=== PATIENT | male | born 1945 | race Caucasian/White ===

== ENCOUNTER → 2017-11-06 10:03 | Outpatient (CLI) | payer MEDICARE, OTHER, SELFPAY ==
[2017-11-06 10:39] LABS: Hemoglobin A1C 6.7 % (4.5-6.2)
== END ==
PROVIDERS: PCP General Practice; Visit Provider General Practice
DX: E11.9 Type 2 diabetes mellitus without complications (principal)
CPT/HCPCS: 36415; 83036

== ENCOUNTER 2018-02-08 10:07 | Outpatient (CLI) | payer MEDICARE, OTHER, SELFPAY ==
[2018-02-08 11:47] LABS: Hemoglobin A1C 6.5 % (4.5-6.2)
== END 2018-02-08 10:27 ==
PROVIDERS: PCP General Practice; Visit Provider General Practice
DX: E11.9 Type 2 diabetes mellitus without complications (principal)
CPT/HCPCS: 36415; 83036

== ENCOUNTER 2018-05-31 10:31 | Outpatient (CLI) | payer MEDICARE, OTHER, SELFPAY ==
[2018-05-31 11:55] LABS: Anion Gap 6.6 mmol/L (3-11); BUN 28 mg/dL (7-18); CO2 33.4 mmol/L (21.0-32.0); CREATININE 1.17 mg/dL (0.70-1.30); Chloride 101 mmol/L (98-107); Potassium 4.1 mmol/L (3.5-5.1); Sodium 141 mmol/L (136-145)
[2018-05-31 12:06] LABS: Hemoglobin A1C 6.9 % (4.5-6.2)
[2018-05-31 12:16] LABS: COMMENT (LAB VIEW ONLY) 141.81 mg/dL; Microalb ug/mg Crea 5.9 ug/mg Cr
== END 2018-05-31 10:51 ==
PROVIDERS: PCP General Practice; Visit Provider General Practice
DX: E11.9 Type 2 diabetes mellitus without complications (principal); I10 Essential (primary) hypertension
CPT/HCPCS: 36415; 80051; 84520; 82043; 82565; 82570; 83036

== ENCOUNTER 2018-08-30 09:58 | Outpatient (CLI) | payer MEDICARE, OTHER, SELFPAY ==
[2018-08-30 11:37] LABS: Hemoglobin A1C 7.3 % (4.5-6.2)
== END 2018-08-30 10:18 ==
PROVIDERS: PCP General Practice; Visit Provider General Practice
DX: E11.9 Type 2 diabetes mellitus without complications (principal)
CPT/HCPCS: 36415; 83036

== ENCOUNTER 2019-02-09 11:23 | Outpatient (CLI) | payer MEDICARE, OTHER, SELFPAY ==
[2019-02-09 12:48] LABS: Hemoglobin A1C 7.3 % (4.5-6.2)
== END 2019-02-09 11:43 ==
PROVIDERS: PCP Nurse Practitioner Family; Visit Provider General Practice
DX: E11.9 Type 2 diabetes mellitus without complications (principal)
CPT/HCPCS: 36415; 83036

== ENCOUNTER 2019-04-20 20:31 | Outpatient (REF) | payer MEDICARE, OTHER, SELFPAY ==
[2019-04-20 14:09] LABS: ALT 22 U/L (16-63); AST 12 U/L (15-37); Albumin 3.2 g/dL (3.4-5.0); Alkaline Phosphatase 79 U/L (46-116); Anion Gap 7.5 mmol/L (3-11); BUN 23 mg/dL (7-18); Bilirubin, Total 0.3 mg/dL (0.2-1.0); CO2 29.5 mmol/L (21.0-32.0); CREATININE 0.94 mg/dL (0.70-1.30); Calculated LDL 79 mg/dL (<100); Chloride 104 mmol/L (98-107); Cholesterol 137 mg/dL (<200); Glucose 144 mg/dL (74-106); HDL Cholesterol 41 mg/dL (40-60); Potassium 4.6 mmol/L (3.5-5.1); Sodium 141 mmol/L (136-145); Total Protein 6.6 g/dL (6.4-8.2); Triglyceride 85 mg/dL (<150)
== END 2019-04-20 20:51 ==
LOC: NCHCN 20:31
PROVIDERS: PCP Nurse Practitioner Family; Visit Provider Internal Medicine Infectious Disease
DX: E11.9 Type 2 diabetes mellitus without complications (principal); K21.9 Gastro-esophageal reflux disease without esophagitis; I10 Essential (primary) hypertension; G47.30 Sleep apnea, unspecified; Z68.42 Body mass index [BMI] 45.0-49.9, adult
CPT/HCPCS: 80053; 80061

== ENCOUNTER 2019-12-27 12:26 | Outpatient (REF) | payer MEDICARE, OTHER, SELFPAY ==
[2019-12-27 18:50] LABS: Hemoglobin A1C 6.9 % (<5.7)
== END 2019-12-27 12:46 ==
LOC: NCHCN 12:26
PROVIDERS: PCP Nurse Practitioner Family; Visit Provider Nurse Practitioner Family
DX: E11.9 Type 2 diabetes mellitus without complications (principal)
CPT/HCPCS: 83036

== ENCOUNTER 2020-10-23 11:53 | Outpatient (REF) | payer MEDICARE, OTHER, SELFPAY ==
[2020-10-23 14:33] LABS: Anion Gap 3.9 mmol/L (3-11); BUN 20 mg/dL (7-18); CO2 32.1 mmol/L (21.0-32.0); Calcium 9.8 mg/dL (8.5-10.1); Chloride 107 mmol/L (98-107); Glucose 105 mg/dL (74-106); Potassium 4.8 mmol/L (3.5-5.1); Sodium 143 mmol/L (136-145)
== END 2020-10-23 11:54 | disposition home or self-care (01) ==
LOC: NCHCN 11:53
PROVIDERS: PCP Nurse Practitioner Family; Visit Provider Nurse Practitioner Family
DX: E11.9 Type 2 diabetes mellitus without complications (principal)
CPT/HCPCS: 80048

== ENCOUNTER 2021-05-07 19:47 | Emergency (ER) | payer MEDICARE, OTHER, SELFPAY ==
[2021-05-07 19:52] VITALS: BP 138/69; PULSE 86; RESP 18; TEMP 36.5; O2SAT 96
--- NOTE | 2021-05-07 20:15 | DI.CT_ITS ---
Exam(s) CT ABDOMEN PELVIS W EXAM: CT ABDOMEN PELVIS W CLINICAL HISTORY: RLQ pain TECHNIQUE: Imaging Protocol: Axial computed tomography images with coronal and sagittal reformatted images were created and reviewed CONTRAST MATERIAL: Intravenous: Omnipaque 350 Contrast volume:100 mL Oral: No COMPARISON: CT RENAL COLIC WO CONTRAST from 09/30/2008 FINDINGS: ABDOMEN: Lung Bases: There is a small hiatal hernia. Scarring or atelectasis in the lung bases. Liver: Diffuse decreased attenuation of the liver consistent with fatty infiltration. The liver raghavendra ures 21 cm long. No measurable mass. Portal, Superior Mesenteric, and Splenic Veins: Unremarkable. Gallbladder and Biliary Tract: At least 3 soft tissue densities are seen within the gallbladder. The re is a mild amount of pericholecystic fluid. No biliary ductal dilatation. Pancreas: Normal density, no abnormal calcifications or inflammatory process. Spleen: Normal. Adrenals: Mild nodularity is again seen of the adrenal glands. Kidneys: Normal size, contour and axis. Bilateral nephrolithiasis. No ureterolithiasis or hydronephr osis. No masses seen. There is a tiny hypodensity in the inferior pole of the left kidney. It is to o small for the further characterization but likely reflects a small cyst. Abdominal Aorta: Abdominal portion non-dilated. Atherosclerosis. Bowel: No obstruction or bowel wall thickening. There are postsurgical changes at the gastroesophage al junction. Appendix is unremarkable. There is diverticulosis of the colon. Adjacent to the sigmoi d colon there is infiltration of the adjacent fat suspicious for omental infarct or epiploic appendag itis. Peritoneal Cavity: No ascites, collection or mesenteric inflammatory response. No free air. Lymph Nodes: Within normal limits. Bones: Within normal limits for the patient's age. Soft Tissues: Unremarkable. PELVIS: Bladder: Symmetric distention, no gross wall thickening. Reproductive Organs: Unremarkable as visualized. Lymph Nodes: Within normal limits. Bones: Within normal limits for the patient's age. IMPRESSION: 1. Findings most suggestive of epiploic appendagitis or omental infarct adjacent to the cecum. 2. Normal appendix. 3. Colonic diverticulosis without evidence of acute diverticulitis. 4. Gallstones and or sludge. 5. Nephrolithiasis. No hydronephrosis. 6. Hepatic steatosis and hepatomegaly. RADIATION DOSE DELIVERED: 1,365.11mGy.cm Total DLP DATA REPOSITORY: All CT scans at this facility are submitted to the National Radiology Data Registry (NRDR) Dose Index Registry (DIR) with the [employer] ([employer]). RADIATION OPTIMIZATION: All CT scans at this facility use at least one of these dose optimization te chniques: automated exposure control; mA and/or kV adjustment per patient size (includes targeted exa ms where dose is matched to clinical indication); or iterative reconstruction.
--- NOTE | 2021-05-07 20:17 | ED.GENADUL_ITS ---
Discharge Plan Disposition Patient Disposition: HOME Condition: Stable Discharge Details Clinical Impression: Epiploic appendagitis Primary Care Provider: Ashli Lizama ED Provider: Fawad Rodríguez Meds and New Rx's Prescriptions: Continued calcium citrate 1,200 mg DAILY 0RF cyanocobalamin (vitamin B-12) [Vitamin B-12] 1,000 MCG tablet 1,000 mcg PO DAILY 0RF aspirin [Aspir-81] 81 MG tablet,delayed release (DR/EC) 81 mg PO DAILY 0RF potassium chloride [Klor-Con M20] 20 MEQ tablet,ER particles/crystals 20 meq PO DAILY 0RF furosemide [Lasix] 80 MG tablet 80 mg PO DAILY 0RF pantoprazole 40 MG tablet,delayed release (DR/EC) 40 mg PO DAILY 0RF magnesium 250 MG tablet 500 mg PO DAILY 0RF Vitamins and Minerals 1 EACH tablet 1 ea PO DAILY 0RF cholecalciferol (vitamin D3) 1,000 UNITS tablet 2,000 units PO DAILY 0RF Levemir FlexTouch U-100 Insuln 100 unit/mL (3 mL) insulin pen 1 unit SUBCUT PC & HS 0RF Label Comments: inject 25 units subcutaneously at bedtime metformin 500 mg tablet 500 mg BID 0RF lisinopril 5 mg tablet 5 mg DAILY 0RF glyburide 5 mg tablet 5 mg DAILY 0RF Label Comments: Take 1 tablet by mouth twice a day Discharge Instructions Instructions: Acute Abdominal Pain (ED) Additional Instructions: You were seen in the ED for right lower quadrant abdominal pain. Your laboratory studies are unremarkable. Your CT scan shows a normal appendix. You do have epiploic appendagitis which is related to a piece of fat which is twisted and necrosis. It will resolve on its own and is considered self- limiting and typically does not require any type of intervention. You may take Tylenol 1 g every 6-8 hours. Follow-up with primary care next week if not improving. Return to ED for increasing abdominal pain, vomiting, fever, other concerns. Referrals: Ashli Lizama [Primary Care Provider] - Medical Decision Making Obese elderly gentleman presenting with 2 days of right lower quadrant abdominal pain. He is fairly tender in the right lower quadrant but does not have guarding or rebound. His vital signs are normal and he looks well. Still must consider appendicitis or other intestinal process. Does not appear to be related to , hernia. IV established and laboratory studies sent including urinalysis. CT scan of the abdomen pelvis with IV contrast ordered. Vital signs remained stable and normal in the ED. Laboratory studies unremarkable with normal white count and minimal anemia. Chemistries and kidney function are okay. Liver function and lipase normal. Unable to provide urine sample. CT scan shows a normal appendix. He does have findings consistent with epiploic appendagitis which explains his pain and is self-limited typically requiring no intervention. I have discussed this with the patient. Because of his gastric bypass will avoid nonsteroidals. Recommend acetaminophen 1 g every 6-8 hours. Patient declined any pain medication here. Follow-up with primary care next week if continued problems. Return to ED for worsening pain, vomiting, fever, other concerns. Imaging Data Radiologic Study: Imaging: CT Scan (abd/pelvis w contrast) Radiologist's impression: IMPRESSION: 1. Epiploic appendagitis adjacent to the cecum. 2. Normal appendix. 3. Gallbladder stones and/or sludge, without specific inflammatory change. 4. Bilateral nonobstructive kidney stones. 5. Moderate-severe multilevel degenerative disc disease and facet arthropathy. Thank you for allowing us to participate in the care of your patient. Dictated and Authenticated by: Clayton Alberts MD Lab Data Lab results reviewed: Yes I reviewed the patient's lab results. Lab results narrative: No significant abnormalities. HPI General Mode of arrival: ambulatory . Date/Time Provider Initiated Documentation: 05/07/21 20:16 . Limitations to Documentation: no limitations . Information obtained by: patient, RN notes reviewed and old records reviewed . HPI Narrative: Patient presents to ED with right lower quadrant abdominal pain that started 2 days ago. It seems to come and go but never completely resolved. It has not become worse but it has not gone away. It is worse if he is lying flat. It is worse if he presses on the area. There is no radiation to the groin or testicle. There is no back pain. There is no difficulty urinating. He has had no vomiting or diarrhea. He had a normal bowel movement this morning. He denies fever. He has had gastric bypass surgery in the past. Still has his appendix. Related Data Home Medications Medication Instructions Recorded Confirmed aspirin 81 mg tablet,delayed 81 mg PO DAILY 06/09/12 05/07/21 release (Aspir-) cholecalciferol (vitamin D3) 25 2,000 units PO DAILY 06/09/12 05/07/21 mcg (1,000 unit) tablet cyanocobalamin (vitamin B-12) 1,000 mcg PO DAILY 06/09/12 05/07/21 1,000 mcg tablet (Vitamin B-12) furosemide 80 mg tablet (Lasix) 80 mg PO DAILY 06/09/12 05/07/21 magnesium 250 mg tablet 500 mg PO DAILY 06/09/12 05/07/21 multivitamin,tx-minerals (Vitamins 1 ea PO DAILY 06/09/12 05/07/21 and Minerals) pantoprazole 40 mg tablet,delayed 40 mg PO DAILY 06/09/12 05/07/21 release potassium chloride 20 mEq 20 meq PO DAILY 06/09/12 05/07/21 tablet,extended release(part/cryst) (Klor-Con M) glyburide 5 mg tablet 5 mg DAILY 05/07/21 05/07/21 insulin detemir U-100 100 unit/mL 1 unit SUBCUT PC & HS 05/07/21 05/07/21 (3 mL) subcutaneous pen (Levemir FlexTouch U-100 Insulin) lisinopril 5 mg tablet 5 mg DAILY 05/07/21 05/07/21 metformin 500 mg tablet 500 mg BID 05/07/21 05/07/21 Allergies Allergy/AdvReac Type Severity Reaction Status Date / Time tolnaftate Allergy Intermediate bower his Verified 05/07/21 19:56 skin off cephalexin [Cephalexin] Allergy Mild Skin Rash Verified 05/07/21 19:56 Penicillins Allergy Mild unknown Verified 05/07/21 19:56 sulfamethoxazole Allergy Unknown Hives Verified 05/07/21 19:56 [From Bactrim] trimethoprim [From Bactrim] Allergy Unknown Hives Verified 05/07/21 19:56 adhesive Allergy rash Verified 05/07/21 19:56 bacitracin Allergy rash Verified 05/07/21 19:56 latex Allergy rash Verified 05/07/21 19:56 neomycin [Neomycin] Allergy Verified 05/07/21 19:56 General Stated Complaint: Abd Prob ZEUS: 3 Review of Systems Narrative: 01/03 Review of Systems completed and is negative except as stated above in HPI (Systems reviewed: Const, Eyes, ENT, Resp, CV, GI, , MSK, Skin, Neuro) PFSH All Active Problems (Updated 05/07/21 @ 22:41 by Fawad Rodríguez MD) Epiploic appendagitis (Acute) Sensorineural hearing loss of combined sites, bilateral (Acute 11/16/14) Medical History Diabetes mellitus GERD (gastroesophageal reflux disease) HTN (hypertension) Kidney stones Surgical History S/P gastric bypass Social History Smoking/Tobacco Use Status: Former Tobacco Use Smoking risk assessment performed?: Yes Drug use: Never Substance use type: does not use Do you feel safe at home: Yes Do you feel safe in your relationship?: Yes Exam Narrative Exam Narrative: Const: Obese elderly male in NAD. HEENT: NC/AT. Normal facial exam. Eyes: Normal conjunctiva and sclera. Neck: Supple. Trachea midline. Lungs: Normal respiratory effort. Lungs are clear. Cor: RRR without murmur/gallop. Good radial pulses. GI: Soft and ND. Tender in the RLQ without guarding/rebound. No Rosving. : Normal external genitalia without hernia Back: No CVAT Neuro: A+O x 3. Normal speech, mentation, gait. Cranial nerves II - XII grossly intact. No gross motor or sensory deficit. Ext: No C/C. Normal ROM. Skin: Warm and dry without rash. Course Vital Signs Vital signs: Vital Signs Temperature 97.7 F 05/07/21 19:52 Pulse 86 05/07/21 19:52 Respiratory Rate 18 05/07/21 19:52 Blood Pressure 138/69 05/07/21 19:52 Pulse Oximetry 96 05/07/21 19:52 Temperature 97.7 F 05/07/21 19:52 Temperature Source Skin 05/07/21 19:52 Pulse 86 05/07/21 19:52 Respiratory Rate 18 05/07/21 19:52 Respiratory Effort 05/07/21 20:03 Blood Pressure 138/69 05/07/21 19:52 Blood Pressure Position Sitting 05/07/21 19:52 Pulse Oximetry 96 05/07/21 19:52 Oxygen Delivery Method Room Air 05/07/21 19:52 Oxygen Flow Rate 0 05/07/21 19:52 Pain Level 6 05/07/21 20:00
[2021-05-07] MEDS: Lactated Ringers 1,000 ML 125 ML IV (20:39)
[2021-05-07 20:51] LABS: Abs Immature Grans 0.02 10^3/uL (0.0-0.06); Absolute Basophil Count 0.08 10^3/uL (0.0-0.2); Absolute Eosinophil Count 0.31 10^3/uL (0.0-0.7); Absolute Lymphocyte Count 1.75 10^3/uL (1.2-3.4); Absolute Monocyte Count 0.82 10^3/uL (0.1-0.8); Absolute Neutrophil Count 4.18 10^3/uL (1.2-6.7); Basophils % 1.1; Eosinophils % 4.3; HCT 39.6 % (40.0-50.0); Immature Grans % 0.3; Lymphocytes % 24.4; MCH 30.5 pg (27.0-33.0); MCHC 32.8 % (32.0-36.0); MPV 9.6 fL (8.0-11.0); Monocytes % 11.5; Neutrophils % 58.4; Nucleated RBC 0 %; Platelet Count 317 10^3/uL (130-400); RBC 4.26 10^6/uL (4.36-5.78); RDW 14.6 % (11.8-14.1); RDW-SD 49.8 fL; WBC 7.16 10^3/uL (4.4-10.8)
[2021-05-07 21:06] LABS: ALT 30 U/L (16-63); AST 14 U/L (15-37); Albumin 3.1 g/dL (3.4-5.0); Alkaline Phosphatase 86 U/L (46-116); Anion Gap 7.5 mmol/L (3-11); BUN 25 mg/dL (7-18); Bilirubin, Total 0.3 mg/dL (0.2-1.0); CO2 28.5 mmol/L (21.0-32.0); Chloride 105 mmol/L (98-107); Glucose 114 mg/dL (74-106); Lipase 99 U/L (73-393); Potassium 4.2 mmol/L (3.5-5.1); Sodium 141 mmol/L (136-145)
[2021-05-07] MEDS: Omnipaque 350 MG/ML 100 ML BTL IJ (21:50)
[2021-05-07] MEDS: Normal Saline Flush 10 ML SYR IVP (21:51)
--- NOTE | 2021-05-07 22:30 | DI.VRAD_ITS ---
PROCEDURE INFORMATION: Exam: CT Abdomen And Pelvis With Contrast Exam date and time: 05/07/2021 8:31 PM Age: 75 years old Clinical indication: Abdominal pain; Localized; Right lower quadrant (rlq); Prior surgery; Surgery date: 6+ months; Surgery type: Gastric bypass 2001; Patient HX: Rlq pain TECHNIQUE: Imaging protocol: Computed tomography of the abdomen and pelvis with contrast. Radiation optimization: All CT scans at this facility use at least one of these dose optimization techniques: automated exposure control; mA and/or kV adjustment per patient size (includes targeted exams where dose is matched to clinical indication); or iterative reconstruction. Contrast material: OMNIPAQUE 350; Contrast volume: 99 ml; Contrast route: INTRAVENOUS (IV); COMPARISON: No relevant prior studies available. FINDINGS: Lungs: Mild pleuroparenchymal scar noted in both lung bases. Diaphragm: Mild hiatal hernia. Liver: Unremarkable liver. No focal lesions. Gallbladder and bile ducts: Large stones and/or sludge noted near the gallbladder fundus. No significant inflammatory changes. No ductal dilatation. Pancreas: Normal. No ductal dilation. Spleen: Normal. No splenomegaly. Adrenal glands: Normal. No mass. Kidneys and ureters: Negative for renal mass or hydronephrosis. Nonobstructing stones are noted in both collecting systems, 3 mm diameter. Ureters are not dilated. There are no stones in the ureters. Stomach and bowel: Postoperative changes from gastric bypass noted. Stomach is collapsed. Small bowel is not dilated. Moderate fat stranding is noted adjacent to the cecum, with a central fat density region, best shown on axial image 54 series 5. Mild stool noted throughout colon. Diverticula are scattered in the descending and sigmoid colon. Rectum is collapsed. Appendix: Normal appendix. Intraperitoneal space: Negative for free fluid or free air. Negative for abscess. Vasculature: Negative for aneurysm. Mild vascular calcifications noted. Lymph nodes: Unremarkable. No enlarged lymph nodes. Urinary bladder: Unremarkable urinary bladder. Giordano are thin. No stones. Reproductive: Large prostate. Bones/joints: Negative for compression fracture. Moderate-severe multilevel degenerative disc disease and facet arthropathy noted. Mild lumbar levoscoliosis present. Sacroiliac joints are normal. No significant narrowing observed in the hips. Soft tissues: Complex postoperative changes noted on the abdominal wall. No specific hernia or fluid collection. IMPRESSION: 1. Epiploic appendagitis adjacent to the cecum. 2. Normal appendix. 3. Gallbladder stones and/or sludge, without specific inflammatory change. 4. Bilateral nonobstructive kidney stones. 5. Moderate-severe multilevel degenerative disc disease and facet arthropathy. Dictated and Authenticated by: Clayton Alberts MD. Ordering:HORACIO Celestin MD
[2021-05-07 22:34] VITALS: BP 126/60; PULSE 90; RESP 18; O2SAT 95
== END 2021-05-07 22:48 | disposition home or self-care (01) ==
PROVIDERS: Emergency Provider Emergency Medicine; PCP Nurse Practitioner Family
DX: K63.89 Other specified diseases of intestine (principal)
CPT/HCPCS: 36415; 80053; 83690; 99285; 74177; 81003; 85025; 99283; J3490

== ENCOUNTER 2022-03-11 16:45 | Outpatient (REF) | payer MEDICARE, OTHER, SELFPAY ==
[2022-03-11 17:52] LABS: Anion Gap 4.2 mmol/L (3-11); BUN 21 mg/dL (7-18); CO2 31.8 mmol/L (21.0-32.0); CREATININE 0.9 mg/dL (0.70-1.30); Calcium 9.5 mg/dL (8.5-10.1); Calculated LDL 84 mg/dL (<100); Chloride 106 mmol/L (98-107); Cholesterol 135 mg/dL (<200); Estimated GFR 88.51 (mL/min/1.73m2); Glucose 113 mg/dL (74-106); HDL Cholesterol 39 mg/dL (40-60); Potassium 4.5 mmol/L (3.5-5.1); Sodium 142 mmol/L (136-145); Triglyceride 62 mg/dL (<150)
== END 2022-03-11 16:46 | disposition home or self-care (01) ==
LOC: NCHCN 16:45
PROVIDERS: PCP Nurse Practitioner Family; Visit Provider Nurse Practitioner Family
DX: E11.9 Type 2 diabetes mellitus without complications (principal); I10 Essential (primary) hypertension
CPT/HCPCS: 80048; 80061

== ENCOUNTER 2022-03-17 10:06 | Emergency (ER) | payer MEDICARE, OTHER, SELFPAY ==
[2022-03-17 10:12] VITALS: BP 114/85; PULSE 70; RESP 16; TEMP 36.4; O2SAT 95
--- NOTE | 2022-03-17 10:43 | ED.GENADUL_ITS ---
Discharge Plan Disposition Patient Disposition: Home Discharge Details Clinical Impression: Rash, Hypomagnesemia Primary Care Provider: Ashli Lizama ED Provider: Carissa Mackey Home Meds and New Rx's Prescriptions: New prednisone 20 mg tablet 40 mg PO DAILY Qty: 8 0RF Continued dulaglutide [Trulicity] 0.75 mg subcut QWEEK ipratropium bromide 42 mcg (0.06 %) spray,non-aerosol 2 spray intranasal QHS PRN (Reason: allergy symptoms) Qty: 15 4RF Rx Instructions: administer into each nostril for congestion calcium citrate 1,200 mg DAILY 0RF cyanocobalamin (vitamin B-12) [Vitamin B-12] 1,000 MCG tablet 1,000 mcg PO DAILY aspirin [Aspir-81] 81 MG tablet,delayed release (DR/EC) 81 mg PO DAILY potassium chloride [Klor-Con M20] 20 MEQ tablet,ER particles/crystals 20 meq PO DAILY furosemide [Lasix] 80 MG tablet 80 mg PO DAILY pantoprazole 40 MG tablet,delayed release (DR/EC) 40 mg PO DAILY magnesium 250 MG tablet 500 mg PO DAILY Vitamins and Minerals 1 EACH tablet 1 ea PO DAILY cholecalciferol (vitamin D3) 1,000 UNITS tablet 2,000 units PO DAILY Levemir FlexTouch U-100 Insuln 100 unit/mL (3 mL) insulin pen 25 unit SUBCUT PC & HS Label Comments: inject 25 units subcutaneously at bedtime metformin 500 mg tablet 500 mg BID lisinopril 5 mg tablet 5 mg DAILY No Action triamcinolone acetonide 0.1 % cream 1 applic TOPICAL BID Label Comments: APPLY A SMALL AMOUNT TO AFFECTED AREA TWO TIMES A DAY FOR 2 WEEKS CONTINUOUS Discharge Instructions Instructions: Prednisone (By mouth), Acute Rash (ED), Hypomagnesemia (ED) Additional Instructions: Please return immediately to the emergency department if you develop any new or worsening symptoms, if your condition does not improve as expected, or if you become otherwise concerned. It is extremely important that you call soon as possible to make an appointment to be seen in follow-up for this visit by your primary care doctor. Referrals: Ashli Lizama [Primary Care Provider] - Discharge Data Discharge Date/Time-TO BE ENTERED AT DEPARTURE: 03/17/22 12:08 Medical Decision Making Concern for vaccine related rash, other allergic reaction, viral exanthem, other. Exam/history at this time is not consistent with cellulitis, sepsis, meningitis, Avila-Shaheen syndrome, [place], DRESS syndrome, other acute emergent life-threatening process. Given comorbidities plan for screening labs. Labs reviewed, magnesium 1.7, will replete. Plan for prednisone burst for rash. I had a lengthy discussion with patient that steroids are likely to increase his blood sugar and that he will need close follow-up with his PCP this week. He may also need a longer course of steroid to fully resolve rash. We discussed that he will need further evaluation to determine etiology of skin symptoms. I had a discussion with Patient regarding return to emergency department precautions, home care, and importance of outpatient follow-up. Pt verbalizes understanding of the plan and is amenable. Patient discharged to home with clear plan for outpatient follow-up. All questions were answered. Disposition decision was made weighing the risks and benefits of hospitalization versus outpatient treatment, the risk for further decompensation, and the patient's wishes. Medical Records Medical records reviewed: Yes I reviewed the patient's medical records. Lab Data Lab results reviewed: Yes I reviewed the patient's lab results. Labs: Laboratory Tests Range/Units 03/17/22 03/17/22 03/17/22 10:50 10:50 11:11 WBC (4.4-10.8) 10^3/uL 6.27 RBC (4.36-5.78) 10^6/uL 4.52 Hgb (13.5-17.5) g/dL 13.9 Hct (40.0-50.0) % 41.9 MCV (80-95) fL 93 MCH (27.0-33.0) pg 30.8 MCHC (32.0-36.0) % 33.2 RDW (11.8-14.1) % 13.9 Plt Count (130-400) 10^3/uL 392 MPV (8.0-11.0) fL 9.3 Immature Gran % 0.2 Neutrophils % 67.8 Lymphocytes % 17.7 Monocytes % 9.7 Eosinophils % 3.2 Basophils % 1.4 Nucleated RBC % (0.0-0.3) % 0.0 Absolute Neutrophils (1.2-6.7) 10^3/uL 4.25 Absolute Lymphocytes (1.2-3.4) 10^3/uL 1.11 L Absolute Monocytes (0.1-0.8) 10^3/uL 0.61 Absolute Eosinophils (0.0-0.7) 10^3/uL 0.20 Absolute Basophils (0.0-0.2) 10^3/uL 0.09 Sodium (136-145) mmol/L 140 Potassium (3.5-5.1) mmol/L 3.6 Chloride (98-107) mmol/L 101 Carbon Dioxide (21.0-32.0) mmol/L 30.5 Anion Gap (3-11) mmol/L 8.5 BUN (7-18) mg/dL 25 H Creatinine (0.70-1.30) mg/dL 1.3 Est GFR (CKD-EPI 2020) (mL/min/1.73m2) 56.93 Glucose (74-106) mg/dL 155 H Calcium (8.5-10.1) mg/dL 9.4 Magnesium (1.8-2.4) mg/dL 1.7 L Total Bilirubin (0.2-1.0) mg/dL 0.5 AST (15-37) U/L 13 L ALT (16-63) U/L 16 Alkaline Phosphatase (46-116) U/L 90 C-Reactive Protein (0.0-0.3) mg/dL 4.04 H Total Protein (6.4-8.2) g/dL 7.1 Albumin (3.4-5.0) g/dL 3.2 L Urine Color (Yellow) Yellow Urine Clarity (Clear) Clear Urine pH (5-8) 5.5 Ur Specific Mascot (1.005-1.025) 1.015 Urine Protein (Negative) mg/dL Negative Urine Ketones (Negative) mg/dL Negative Urine Blood (Negative) Negative Urine Nitrite (Negative) Negative Urine Bilirubin (Negative) Negative Urine Urobilinogen (Up TO 0.2) EU/dL 0.2 Ur Leukocyte Esterase (Negative) Negative Urine Glucose (Negative) mg/dL Negative HPI General Mode of arrival: ambulatory . Date/Time Provider Initiated Documentation: 03/17/22 10:31 . Limitations to Documentation: no limitations . Information obtained by: patient, RN notes reviewed and old records reviewed . HPI Narrative: Mickey Elena is a 76-year-old man with a history of insulin-dependent diabetes, hypertension, obstructive sleep apnea, GERD presenting to the emergency department with rash. Patient reports that on 03/11/2022 he received Pfizer omicron booster vaccine. Patient reports that all of his previous COVID vaccines have been Moderna. Patient reports that he has had no vaccine reactions in the past. Patient reports that the day after receiving the vaccine, 03/12, he developed an itchy rash over his scalp, trunk, arms, and upper thighs. Patient reports that he took a few doses of Benadryl which did not improve his symptoms. He states that symptoms have been unchanged since onset, without worsening or improvement. He denies any involvement of his mouth or lips, denies involvement of the genitals, denies involvement of the palms or soles. He denies any recent illness or other symptoms and states that other than rash he feels well and in his usual state of health. He denies pain, fever, cough, shortness of breath, vomiting, diarrhea, numbness, weakness, swelling. He states that he has had a normal appetite. He denies any recent medication changes other than starting Trulicity 3 months ago. Denies any other known new exposures. Related Data Home Medications Medication Instructions Recorded Confirmed aspirin 81 mg tablet,delayed 81 mg PO DAILY 06/09/12 04/07/22 release (Aspir-) cholecalciferol (vitamin D3) 25 2,000 units PO DAILY 06/09/12 04/07/22 mcg (1,000 unit) tablet cyanocobalamin (vitamin B-12) 1,000 mcg PO DAILY 06/09/12 04/07/22 1,000 mcg tablet (Vitamin B-12) furosemide 80 mg tablet (Lasix) 80 mg PO DAILY 06/09/12 04/07/22 magnesium 250 mg tablet 500 mg PO DAILY 06/09/12 04/07/22 multivitamin,tx-minerals (Vitamins 1 ea PO DAILY 06/09/12 04/07/22 and Minerals tablet) pantoprazole 40 mg tablet,delayed 40 mg PO DAILY 06/09/12 04/07/22 release potassium chloride 20 mEq 20 meq PO DAILY 06/09/12 04/07/22 tablet,extended release(part/cryst) (Klor-Con M) insulin detemir U-100 100 unit/mL 25 unit subcut PC & HS 05/07/21 04/07/22 (3 mL) subcutaneous pen (Levemir FlexTouch U-100 Insulin) lisinopril 5 mg tablet 5 mg DAILY 05/07/21 04/07/22 metformin 500 mg tablet 500 mg BID 05/07/21 04/07/22 dulaglutide [Trulicity] 0.75 mg subcut QWEEK 12/05/21 04/07/22 ipratropium bromide 42 mcg (0.06 2 spray intranasal QHS PRN allergy 12/05/21 04/07/22 %) nasal spray symptoms #15 mL prednisone 20 mg tablet 40 mg PO DAILY #8 tabs 03/17/22 04/07/22 triamcinolone acetonide 0.1 % 1 applic topical BID 04/07/22 04/07/22 topical cream Previous Rx's Medication Instructions Recorded ipratropium bromide 42 mcg (0.06 2 spray intranasal QHS PRN allergy 12/05/21 %) nasal spray symptoms #15 mL prednisone 20 mg tablet 40 mg PO DAILY #8 tabs 03/17/22 Allergies Allergy/AdvReac Type Severity Reaction Status Date / Time tolnaftate Allergy Intermediate bower his Verified 04/07/22 16:28 skin off cephalexin [Cephalexin] Allergy Mild Skin Rash Verified 04/07/22 16:28 Penicillins Allergy Mild unknown Verified 04/07/22 16:28 sulfamethoxazole Allergy Unknown Hives Verified 04/07/22 16:28 [From Bactrim] trimethoprim [From Bactrim] Allergy Unknown Hives Verified 04/07/22 16:28 adhesive Allergy rash Verified 04/07/22 16:28 bacitracin Allergy rash Verified 04/07/22 16:28 latex Allergy rash Verified 04/07/22 16:28 neomycin [Neomycin] Allergy Verified 04/07/22 16:28 penicillin V Allergy Verified 04/07/22 16:28 General Stated Complaint: RashLesion ZEUS: 4 Review of Systems Narrative: Constitutional: denies fevers Eyes: denies eye pain, eye redness, eye discharge ENT: denies ear pain, dental pain, sore throat, mouth sores Cardiovascular: denies chest pain, edema Respiratory: denies SOB, cough GI: denies abdominal pain, vomiting, diarrhea : denies flank pain, dysuria MSK: denies back pain, neck pain, arthralgias, myalgias Skin: reports rash as per HPI Neuro: denies headaches, numbness, weakness PFSH All Active Problems Corns and callosities (Acute) Nail dystrophy (Acute) Nasal obstruction (Acute) Nasal vestibulitis (Acute) Conductive hearing loss, external ear (Acute) Impacted cerumen, bilateral (Acute) Sensorineural hearing loss of combined sites, bilateral (Acute 11/16/14) Medical History Diabetes mellitus Excessive cerumen in ear canal GERD (gastroesophageal reflux disease) Hearing loss HTN (hypertension) Kidney stones ROCÍO (obstructive sleep apnea) Surgical History S/P gastric bypass Family History Mother Hypertension Social History Smoking/Tobacco Use Status: Former Tobacco Use Smoking risk assessment performed?: Yes Alcohol Intake: never Drug use: Never Substance use type: does not use current occupation: retired Do you feel safe at home: Yes Do you feel safe in your relationship?: Yes Exam Narrative Exam Narrative: Constitutional: well and [id number], pleasant, conversing normally HENT: head atraumatic/normocephalic/normal inspection, mucous membranes moist, normal inspecition of the oral mucosa Eyes: conjunctiva normal, sclera normal, pupils 3mm b/l, no discharge Neck: no stridor, normal ROM, trachea midline Chest: normal inspection Resp: normal work of breathing, LCTAB Cardio: normal rate, normal rhythm, no murmur appreciated GI: abdomen soft, non-tender, non-distended Back: normal inspection, no rash Skin: warm, dry, normal color, diffuse fine macular papular rash involving the trunk, arms, legs, rash spares the palms and soles, no lip/mucous membrane involvement Neuro: alert, not altered, grossly non-focal, normal tone Ext: no edema Psych: normal mood, normal affect, normal behavior Course Vital Signs Vital signs: Vital Signs Temperature 36.4 C L 03/17/22 10:12 Pulse 70 03/17/22 10:12 Respiratory Rate 16 03/17/22 10:12 Blood Pressure 114/85 03/17/22 10:12 Pulse Oximetry 95 03/17/22 10:12 Temperature 36.4 C L 03/17/22 10:12 Temperature Source Temporal Artery Scan 03/17/22 10:12 Pulse 70 03/17/22 10:12 Respiratory Rate 16 03/17/22 10:12 Respiratory Effort Non-Labored 03/17/22 10:16 Blood Pressure 114/85 03/17/22 10:12 Blood Pressure Position Sitting 03/17/22 10:12 Pulse Oximetry 95 03/17/22 10:12 Oxygen Delivery Method Room Air 03/17/22 10:12 Oxygen Flow Rate 0 03/17/22 10:12 Pain Level 0 03/17/22 10:12
[2022-03-17 11:00] LABS: Abs Immature Grans 0.01 10^3/uL (0.0-0.06); Absolute Basophil Count 0.09 10^3/uL (0.0-0.2); Absolute Lymphocyte Count 1.11 10^3/uL (1.2-3.4); Absolute Monocyte Count 0.61 10^3/uL (0.1-0.8); Absolute Neutrophil Count 4.25 10^3/uL (1.2-6.7); Basophils % 1.4; Eosinophils % 3.2; HCT 41.9 % (40.0-50.0); HGB 13.9 g/dL (13.5-17.5); Immature Grans % 0.2; Lymphocytes % 17.7; MCH 30.8 pg (27.0-33.0); MCHC 33.2 % (32.0-36.0); MCV 93 fL (80-95); MPV 9.3 fL (8.0-11.0); Monocytes % 9.7; Neutrophils % 67.8; Platelet Count 392 10^3/uL (130-400); RBC 4.52 10^6/uL (4.36-5.78); RDW 13.9 % (11.8-14.1); RDW-SD 47.4 fL; WBC 6.27 10^3/uL (4.4-10.8)
[2022-03-17 11:21] LABS: Bilirubin Negative (Negative); Blood Negative (Negative); Clarity Clear (Clear); Glucose Negative (Negative); Ketones Negative (Negative); Leukocyte Esterase Negative (Negative); Nitrite Negative (Negative); Specific Gravity 1.015 (1.005-1.025); Urobilinogen 0.2 EU/dL (Up TO 0.2); pH 5.5 (5-8)
[2022-03-17 11:24] LABS: ALT 16 U/L (16-63); AST 13 U/L (15-37); Albumin 3.2 g/dL (3.4-5.0); Alkaline Phosphatase 90 U/L (46-116); Anion Gap 8.5 mmol/L (3-11); BUN 25 mg/dL (7-18); Bilirubin, Total 0.5 mg/dL (0.2-1.0); C-Reactive Protein 4.04 mg/dL (0.0-0.3); CO2 30.5 mmol/L (21.0-32.0); CREATININE 1.3 mg/dL (0.70-1.30); Calcium 9.4 mg/dL (8.5-10.1); Chloride 101 mmol/L (98-107); Estimated GFR 56.93 (mL/min/1.73m2); Glucose 155 mg/dL (74-106); Magnesium 1.7 mg/dL (1.8-2.4); Potassium 3.6 mmol/L (3.5-5.1); Sodium 140 mmol/L (136-145); Total Protein 7.1 g/dL (6.4-8.2)
[2022-03-17] MEDS: predniSONE 20 MG TAB 40 MG PO (11:48)
[2022-03-17] MEDS: Magnesium Oxide 400 MG TAB PO (11:48)
== END 2022-03-17 12:08 | disposition home or self-care (01) ==
PROVIDERS: Emergency Provider Student in an Organized Health Care Education/Training Program; PCP Nurse Practitioner Family
DX: E83.42 Hypomagnesemia (principal); R21 Rash and other nonspecific skin eruption; E10.9 Type 1 diabetes mellitus without complications; I10 Essential (primary) hypertension
CPT/HCPCS: 36415; 80053; 99283; 81003; 83735; 85025; 86140; 99284; J7512

== ENCOUNTER 2022-04-07 16:20 | Emergency (ER) | payer MEDICARE, SELFPAY ==
[2022-04-07 16:24] VITALS: BP 145/79; PULSE 95; RESP 18; TEMP 36.6; O2SAT 96
--- NOTE | 2022-04-07 16:58 | ED.GENADUL_ITS ---
Discharge Plan Disposition Patient Disposition: Home Condition: Stable Discharge Details Chief Complaint: RashLesion Clinical Impression: Rash Primary Care Provider: Ashli Lizama ED Provider: Berny Whalen Home Meds and New Rx's Prescriptions: No Action dulaglutide [Trulicity] 0.75 mg subcut QWEEK ipratropium bromide 42 mcg (0.06 %) spray,non-aerosol 2 spray intranasal QHS PRN (Reason: allergy symptoms) Qty: 15 4RF Rx Instructions: administer into each nostril for congestion calcium citrate 1,200 mg DAILY 0RF cyanocobalamin (vitamin B-12) [Vitamin B-12] 1,000 MCG tablet 1,000 mcg PO DAILY aspirin [Aspir-81] 81 MG tablet,delayed release (DR/EC) 81 mg PO DAILY potassium chloride [Klor-Con M20] 20 MEQ tablet,ER particles/crystals 20 meq PO DAILY furosemide [Lasix] 80 MG tablet 80 mg PO DAILY pantoprazole 40 MG tablet,delayed release (DR/EC) 40 mg PO DAILY magnesium 250 MG tablet 500 mg PO DAILY Vitamins and Minerals 1 EACH tablet 1 ea PO DAILY cholecalciferol (vitamin D3) 1,000 UNITS tablet 2,000 units PO DAILY Levemir FlexTouch U-100 Insuln 100 unit/mL (3 mL) insulin pen 25 unit SUBCUT PC & HS Label Comments: inject 25 units subcutaneously at bedtime metformin 500 mg tablet 500 mg BID lisinopril 5 mg tablet 5 mg DAILY prednisone 20 mg tablet 40 mg PO DAILY Qty: 8 0RF triamcinolone acetonide 0.1 % cream 1 applic TOPICAL BID Label Comments: APPLY A SMALL AMOUNT TO AFFECTED AREA TWO TIMES A DAY FOR 2 WEEKS CONTINUOUS Discharge Instructions Instructions: Acute Rash (ED) Additional Instructions: Please follow-up immediately with [facility] dermatology. If you have any worsening signs or symptoms please return to the emergency department. Medical Decision Making 76-year-old male presents with rash for over 1 month. Patient noticed a rash March 05 1 day after receiving his Pfizer COVID booster. Rash involves arms back and chest, no involvement of mouth eyes or other mucosal surface. Patient has macular papular rash confluence with plaques and keratinized skin on his back, papular rash with diffuse excoriations on his arms and hands. No bulla petechia or mucosal involvement. Patient is hemodynamically stable. Afebrile nontoxic. Has failed multiple courses of steroids. Is waiting for a call back from [facility] dermatology this week. Counseled patient family extensively at bedside regarding likely futility of adding another course of steroids and my concern that long-term steroids will affect his normal adrenal function as well as cause immunosuppression and derangement of his diabetes. Patient family understanding. Will await call for dermatology appointment at [facility]. Given strict return precautions for worsening signs and symptoms. Upon initial assessment is also concern for diffuse scabies however patient is adamant that he is the only member of his 5 person family in the house that has a rash. HPI General Date/Time Provider Initiated Documentation: 04/07/22 16:23 . HPI Narrative: 76-year-old male presents with a rash for over 1 month, first noticed rash on March 05 1 day after receiving his Pfizer COVID booster. Itching rash red involving arms chest back, no involvement of face mouth or eyes. Patient has been on multiple courses of steroids as well as topical steroids. He is in cont act with a dermatology group at [facility] will be calling this week to schedule an appointment. Persistent symptoms unchanged. Denies new detergents new clothing new environmental exposure. No one in the family has a similar rash. Related Data Home Medications Medication Instructions Recorded Confirmed aspirin 81 mg tablet,delayed 81 mg PO DAILY 06/09/12 04/07/22 release (Aspir-) cholecalciferol (vitamin D3) 25 2,000 units PO DAILY 06/09/12 04/07/22 mcg (1,000 unit) tablet cyanocobalamin (vitamin B-12) 1,000 mcg PO DAILY 06/09/12 04/07/22 1,000 mcg tablet (Vitamin B-12) furosemide 80 mg tablet (Lasix) 80 mg PO DAILY 06/09/12 04/07/22 magnesium 250 mg tablet 500 mg PO DAILY 06/09/12 04/07/22 multivitamin,tx-minerals (Vitamins 1 ea PO DAILY 06/09/12 04/07/22 and Minerals tablet) pantoprazole 40 mg tablet,delayed 40 mg PO DAILY 06/09/12 04/07/22 release potassium chloride 20 mEq 20 meq PO DAILY 06/09/12 04/07/22 tablet,extended release(part/cryst) (Klor-Con M) insulin detemir U-100 100 unit/mL 25 unit subcut PC & HS 05/07/21 04/07/22 (3 mL) subcutaneous pen (Levemir FlexTouch U-100 Insulin) lisinopril 5 mg tablet 5 mg DAILY 05/07/21 04/07/22 metformin 500 mg tablet 500 mg BID 05/07/21 04/07/22 dulaglutide [Trulicity] 0.75 mg subcut QWEEK 12/05/21 04/07/22 ipratropium bromide 42 mcg (0.06 2 spray intranasal QHS PRN allergy 12/05/21 04/07/22 %) nasal spray symptoms #15 mL prednisone 20 mg tablet 40 mg PO DAILY #8 tabs 03/17/22 04/07/22 triamcinolone acetonide 0.1 % 1 applic topical BID 04/07/22 04/07/22 topical cream Previous Rx's Medication Instructions Recorded ipratropium bromide 42 mcg (0.06 2 spray intranasal QHS PRN allergy 12/05/21 %) nasal spray symptoms #15 mL prednisone 20 mg tablet 40 mg PO DAILY #8 tabs 03/17/22 Allergies Allergy/AdvReac Type Severity Reaction Status Date / Time tolnaftate Allergy Intermediate bower his Verified 04/07/22 16:28 skin off cephalexin [Cephalexin] Allergy Mild Skin Rash Verified 04/07/22 16:28 Penicillins Allergy Mild unknown Verified 04/07/22 16:28 sulfamethoxazole Allergy Unknown Hives Verified 04/07/22 16:28 [From Bactrim] trimethoprim [From Bactrim] Allergy Unknown Hives Verified 04/07/22 16:28 adhesive Allergy rash Verified 04/07/22 16:28 bacitracin Allergy rash Verified 04/07/22 16:28 latex Allergy rash Verified 04/07/22 16:28 neomycin [Neomycin] Allergy Verified 04/07/22 16:28 penicillin V Allergy Verified 04/07/22 16:28 General Stated Complaint: RashLesion ZEUS: 4 Review of Systems Narrative: Review of Systems Constitutional: negative Eyes: negative ENT: negative Cardiovascular: negative Respiratory: negative Gastrointestinal: negative : negative Musculoskeletal: negative Skin: Rash Neurologic: negative Psych: negative PFSH All Active Problems (Updated 04/07/22 @ 17:07 by Berny Whalen MD) Rash (Acute) Hypomagnesemia (Acute) Corns and callosities (Acute) Nail dystrophy (Acute) Nasal obstruction (Acute) Nasal vestibulitis (Acute) Conductive hearing loss, external ear (Acute) Impacted cerumen, bilateral (Acute) Sensorineural hearing loss of combined sites, bilateral (Acute 11/16/14) Medical History Diabetes mellitus Excessive cerumen in ear canal GERD (gastroesophageal reflux disease) Hearing loss HTN (hypertension) Kidney stones ROCÍO (obstructive sleep apnea) Surgical History S/P gastric bypass Family History Mother Hypertension Social History Smoking/Tobacco Use Status: Former Tobacco Use Smoking risk assessment performed?: Yes Alcohol Intake: never Drug use: Never Substance use type: does not use current occupation: retired Do you feel safe at home: Yes Do you feel safe in your relationship?: Yes Exam Narrative Exam Narrative: Physical Examination General: alert, awake, cooperative, resting comfortably, no acute distress HEENT: normocephalic, atraumatic; PERRL, EOM intact, conjunctiva normal; no nasal discharge; moist mucous membranes, oral and pharyngeal mucosa normal, tolerating secretions Neck: supple, trachea midline; full ROM Chest: normal to inspection Respiratory: normal respiratory effort, speaking in full sentences, clear to auscultation, no wheezing, rales or rhonchi Skin: Diffuse papular rash involving arms and chest, confluent maculopapular rash with keratinized plaques coalescing on back areas of thickened skin, diffuse excoriations; no mucosal involvement Neuro: AAOx3, normal speech, moving all extremities Psych: Appropriate mood and affect Course Vital Signs Vital signs: Vital Signs Temperature 36.6 C 04/07/22 16:24 Pulse 95 H 04/07/22 16:24 Respiratory Rate 18 04/07/22 16:24 Blood Pressure 145/79 H 04/07/22 16:24 Pulse Oximetry 96 04/07/22 16:24 Temperature 36.6 C 04/07/22 16:24 Temperature Source Skin 04/07/22 16:24 Pulse 95 H 04/07/22 16:24 Respiratory Rate 18 04/07/22 16:24 Respiratory Effort Non-Labored 04/07/22 16:28 Blood Pressure 145/79 H 04/07/22 16:24 Blood Pressure Position Sitting 04/07/22 16:24 Pulse Oximetry 96 04/07/22 16:24 Oxygen Delivery Method Room Air 04/07/22 16:24 Oxygen Flow Rate 0 04/07/22 16:24
--- NOTE | 2022-04-08 09:34 | NUR.NOTE ---
Nursing Note: PAtient was looking for a referral to [facility]. INfomation given to kyleigh Isaac
--- NOTE | 2022-04-08 09:53 | PDOC.ERCMACT ---
- If Service Date Differs Date of service: 04/08/22 Time of Service: 09:53 Care Management Activity Note Souleymane is seen in the ED for an acute rash. At the request of ED provider, LASHAWN coordinates an urgent referral to [facility] dermatology to assist Souleymane in obtaining an appointment for further evaluation and treatment of the rash. He has Probity for insurance.
== END 2022-04-07 17:09 | disposition home or self-care (01) ==
PROVIDERS: Emergency Provider Emergency Medicine; PCP Nurse Practitioner Family
DX: R21 Rash and other nonspecific skin eruption (principal)
CPT/HCPCS: 99281; 99283

== ENCOUNTER 2022-06-17 15:47 | Outpatient (REF) | payer MEDICARE, SELFPAY ==
[2022-06-17 11:00] LABS: COMMENT (LAB VIEW ONLY) 153.27 mg/dL; Microalb ug/mg Crea 2.7 ug/mg Cr
== END 2022-06-17 15:48 | disposition home or self-care (01) ==
LOC: NCHCN 15:47
PROVIDERS: PCP Nurse Practitioner Family; Visit Provider Family Medicine
DX: E11.9 Type 2 diabetes mellitus without complications (principal)
CPT/HCPCS: 82043; 82570

== ENCOUNTER → 2023-02-17 09:15 | Outpatient (BNVA) | payer MEDICARE, SELFPAY | PROVIDERS: PCP Nurse Practitioner Family; Referring Provider Nurse Practitioner Family; Visit Provider Podiatrist | DX: E11.9 Type 2 diabetes mellitus without complications (principal); L60.3 Nail dystrophy; L84 Corns and callosities; B35.1 Tinea unguium; I87.2 Venous insufficiency (chronic) (peripheral); R60.0 Localized edema | CPT/HCPCS: 11721 ==

== ENCOUNTER 2023-05-04 12:30 | Outpatient (REF) | payer MEDICARE, SELFPAY ==
[2023-05-04 19:36] LABS: HCT 40.1 % (40.0-50.0); HGB 13.1 g/dL (13.5-17.5); MCHC 32.7 % (32.0-36.0); MCV 92 fL (80-95); MPV 10.5 fL (8.0-11.0); Platelet Count 322 10^3/uL (130-400); RBC 4.36 10^6/uL (4.36-5.78); RDW 14.7 % (11.8-14.1); RDW-SD 50.3 fL; WBC 6.95 10^3/uL (4.4-10.8)
[2023-05-04 19:58] LABS: Hemoglobin A1C 6.4 % (<5.7)
[2023-05-04 20:19] LABS: ALT 20 U/L (16-63); AST 12 U/L (15-37); Albumin 3.2 g/dL (3.4-5.0); Alkaline Phosphatase 79 U/L (46-116); Anion Gap 9.8 mmol/L (3-11); BUN 22 mg/dL (7-18); Bilirubin, Total 0.3 mg/dL (0.2-1.0); CO2 29.2 mmol/L (21.0-32.0); CREATININE 1.3 mg/dL (0.70-1.30); Calcium 9.7 mg/dL (8.5-10.1); Chloride 102 mmol/L (98-107); Estimated GFR 56.58 (mL/min/1.73m2); Glucose 104 mg/dL (74-106); Potassium 4.1 mmol/L (3.5-5.1); Sodium 141 mmol/L (136-145); Total Protein 6.6 g/dL (6.4-8.2); Vitamin B12 928 pg/mL (193-986)
[2023-05-04 20:57] LABS: Vitamin D 25 Total 43.4 ng/mL (30-100)
== END 2023-05-04 12:31 | disposition home or self-care (01) ==
LOC: NCHCN 12:30
PROVIDERS: PCP Nurse Practitioner Family; Visit Provider Nurse Practitioner Family
DX: E11.9 Type 2 diabetes mellitus without complications (principal)
CPT/HCPCS: 80053; 82306; 85027; 82607; 83036; 83735

== ENCOUNTER → 2023-06-09 09:23 | Outpatient (BNVA) | payer MEDICARE, SELFPAY | PROVIDERS: PCP Nurse Practitioner Family; Referring Provider Nurse Practitioner Family; Visit Provider Podiatrist | DX: E11.9 Type 2 diabetes mellitus without complications (principal); L60.3 Nail dystrophy; L84 Corns and callosities; B35.1 Tinea unguium; I87.2 Venous insufficiency (chronic) (peripheral); R60.0 Localized edema | CPT/HCPCS: 11721 ==

== ENCOUNTER 2023-08-12 01:09 | Inpatient (IN) | payer MEDICARE, SELFPAY ==
[2023-08-12] VITALS (24 sets, daily range): BP systolic 77–164; BP diastolic 48–89; PULSE 77–126; RESP 14–93; TEMP 36.3–39.1; O2SAT 92–98
--- NOTE | 2023-08-12 01:00 | RT.EKG_ITS ---
APPROVED REPORT Exam: Resting ECG Reason for Exam: SOB Patient Location: E HR:83 bpm ECG Measurements Heart Rate 83 AXIS NJ 247 P 68 QRSd 156 QRS -4 QT 426 T -4 QTc 501 Conclusion Sinus rhythm...normal P axis, V-rate 60- 99 Ventricular premature complex...V complex w/ short R-R interval Prolonged NJ interval...NJ >220, V-rate 50- 90 IVCD, consider RBBB...QRSd>120mS, terminal axis(90,270) no ST segment or T wave abnormalitites to suggest occlusive ME
--- NOTE | 2023-08-12 01:15 | DI.CT_ITS ---
Exam(s) CT THORAX CTA EXAM: CT THORAX CTA CLINICAL HISTORY: epigastric pain radiating into back. TECHNIQUE: Imaging Protocol: CT angiography of the chest was performed using pulmonary embolus chuy col. Multi planar reconstructions were performed. CONTRAST MATERIAL: Intravenous: Omnipaque 350 Contrast volume: 100 cc COMPARISON: No exams were available for comparison FINDINGS: CHEST: THORACIC AORTA: No aneurysm. No dissection. PULMONARY ARTERIES: There are no intraluminal filling defects to suggest acute pulmonary emboli.No ev idence of pulmonary infarction LUNGS: No confluent infiltrates nor pleural effusions nor ominous pulmonary nodules. Mild atelectasi s in the lingular segment of the left lung. MEDIASTINUM: There is no hilar nor mediastinal adenopathy. Visualized thyroid unremarkable.Moderate s ize hiatal hernia. Measures 4 cm wide. CARDIAC: Heart size is upper normal. There is no pericardial effusion.Caliber of the thoracic aorta is within normal limits. No dissection there is no significant shift of the interventricular septum. PARTIALLY VISUALIZED UPPERMOST ABDOMEN: Cholelithiasis and distended gallbladder noted. Also evidenc e of probable acute cholecystitis in the partially included gallbladder. Slight thickening of both a drenal glands is noted, unchanged from previous CT scan of 2021. OSSEOUS: No significant osseous lesions.No acute fractures evident.. IMPRESSION: 1. No evidence of acute pulmonary emboli. No evidence of pulmonary infarction.Also no evidence of ao rtic dissection nor aneurysm of the thoracic aorta. No pericardial effusion. 2. Cholelithiasis and probable acute cholecystitis. Recommend follow-up gallbladder ultrasound. 3. Moderate size hiatal hernia. RADIATION DOSE DELIVERED: 605.83mGy.cm Total DLP DATA REPOSITORY: All CT scans at this facility are submitted to the National Radiology Data Registry (NRDR) Dose Index Registry (DIR) with the [employer] ([employer]). RADIATION OPTIMIZATION: All CT scans at this facility use at least one of these dose optimization te chniques: automated exposure control; mA and/or kV adjustment per patient size (includes targeted exa ms where dose is matched to clinical indication); or iterative reconstruction.
[2023-08-12 01:22] LABS: Abs Immature Grans 0.02 10^3/uL (0.0-0.06); Absolute Basophil Count 0.05 10^3/uL (0.0-0.2); Absolute Eosinophil Count 0.33 10^3/uL (0.0-0.7); Absolute Lymphocyte Count 1.19 10^3/uL (1.2-3.4); Absolute Monocyte Count 0.58 10^3/uL (0.1-0.8); Basophils % 0.7 %; Eosinophils % 4.9 %; HCT 36.6 % (40.0-50.0); Immature Grans % 0.3 %; Lymphocytes % 17.8 %; MCH 30.2 pg (27.0-33.0); MCHC 32.8 % (32.0-36.0); MCV 92 fL (80-95); MPV 9.1 fL (8.0-11.0); Monocytes % 8.7 %; Neutrophils % 67.6 %; Platelet Count 342 10^3/uL (130-400); RBC 3.97 10^6/uL (4.36-5.78); RDW 14.1 % (11.8-14.1); RDW-SD 47.7 fL; WBC 6.67 10^3/uL (4.4-10.8)
[2023-08-12] MEDS: Omnipaque 350 MG/ML 100 ML BTL IJ (01:29)
[2023-08-12] MEDS: Normal Saline - Diluent 50 ML VIAL IJ (01:30)
[2023-08-12] MEDS: Normal Saline Flush 10 ML SYR IVP (01:30)
[2023-08-12 01:35] LABS: PTT Activated 27.3 sec (23.6-32.8); Prothrombin Time 10.5 sec (9.1-11.1)
[2023-08-12 01:36] LABS: ALT 124 U/L (16-63); AST 215 U/L (15-37); Alkaline Phosphatase 318 U/L (46-116); Anion Gap 6.1 mmol/L (3-11); BUN 35 mg/dL (7-18); CO2 29.9 mmol/L (21.0-32.0); CREATININE 1.3 mg/dL (0.70-1.30); Calcium 9.2 mg/dL (8.5-10.1); Chloride 102 mmol/L (98-107); Estimated GFR 56.23 (mL/min/1.73m2); Glucose 127 mg/dL (74-106); Lipase 45 U/L (16-77); Magnesium 1.8 mg/dL (1.8-2.4); Sodium 138 mmol/L (136-145); Total Protein 6.7 g/dL (6.4-8.2); Troponin I < 50 ng/L (< or =60)
[2023-08-12] MEDS: Acetaminophen 500 MG TAB 1000 MG PO (02:01)
--- NOTE | 2023-08-12 02:06 | ED.GENADUL_ITS ---
Discharge Plan Disposition Patient Disposition: Admit to [facility] Condition: Serious Discharge Details Chief Complaint: Epigastric Pain/Over45 Clinical Impression: Acute cholecystitis Primary Care Provider: PAYAL LICEA ED Provider: Court Travis Home Meds and New Rx's Prescriptions: No Action ipratropium bromide 42 mcg (0.06 %) spray,non-aerosol 2 spray intranasal QHS PRN (Reason: allergy symptoms) Qty: 15 4RF Rx Instructions: administer into each nostril for congestion mupirocin 2 % ointment 1 applic topical BID Qty: 22 0RF Patient Comments: PRN Rx Instructions: use in nose as directed if needed calcium citrate 250 mg calcium tablet 500 mg PO BID desoximetasone 0.25 % ointment 1 applic topical BID fluoride (sodium) 1.1 % paste 1 applic dental DAILY calcium citrate 1,200 mg DAILY 0RF ketoconazole 2 % cream 1 applic topical BID Patient Comments: PRN Trulicity 1.5 mg/0.5 mL pen injector 1.5 mg subcut QWEEK potassium chloride [Klor-Con M20] 20 mEq tablet,ER particles/crystals 20 meq PO DAILY betamethasone dipropionate 0.05 % ointment 1 applic topical BID cyanocobalamin (vitamin B-12) [Vitamin B-12] 1,000 MCG tablet 1,000 mcg PO DAILY aspirin [Aspir-81] 81 MG tablet,delayed release (DR/EC) 81 mg PO DAILY furosemide [Lasix] 80 MG tablet 80 mg PO DAILY pantoprazole 40 MG tablet,delayed release (DR/EC) 40 mg PO DAILY magnesium 250 MG tablet 500 mg PO DAILY Vitamins and Minerals 1 EACH tablet 1 ea PO DAILY cholecalciferol (vitamin D3) 1,000 UNITS tablet 2,000 units PO DAILY Levemir FlexTouch U100 Insulin 100 unit/mL (3 mL) insulin pen 25 unit SUBCUT PC & HS Patient Comments: inject 25 units subcutaneously at bedtime lisinopril 5 mg tablet 5 mg PO DAILY metformin 500 mg tablet 1,000 mg PO BID triamcinolone acetonide 0.1 % cream 1 applic TOPICAL BID Patient Comments: APPLY A SMALL AMOUNT TO AFFECTED AREA TWO TIMES A DAY FOR 2 WEEKS CONTINUOUS HPI General Mode of arrival: EMS . Date/Time Provider Initiated Documentation: 08/12/23 01:16 . Limitations to Documentation: no limitations . Information obtained by: patient and EMS . HPI Narrative: 78yo M with hx HTN, DM, GERD, ROCÍO, gastric bypass, presenting for acute epigastric pain. Woke at round 2300 this evening with severe sharp epigastric pain radiating into his back. Tried tums with no relief. Had a few similar episodes earlier this week which were not as severe and resolved without intervention. No fevers, chills, nausea, or vomiting. No chest pain or shortness of breath. No numbness, tingling, or weakness. No dysuria, hematuria, or flank pain. No constipation or diarrhea. Otherwise in his usual state of health. Related Data Home Medications Medication Instructions Recorded Confirmed aspirin 81 mg tablet,delayed 81 mg PO DAILY 06/09/12 08/12/23 release (Aspir-) cholecalciferol (vitamin D3) 25 2,000 units PO DAILY 06/09/12 08/12/23 mcg (1,000 unit) tablet cyanocobalamin (vitamin B-12) 1,000 mcg PO DAILY 06/09/12 08/12/23 1,000 mcg tablet (Vitamin B-12) furosemide 80 mg tablet (Lasix) 80 mg PO DAILY 06/09/12 08/12/23 magnesium 250 mg tablet 500 mg PO DAILY 06/09/12 08/12/23 multivitamin,tx-minerals (Vitamins 1 ea PO DAILY 06/09/12 08/12/23 and Minerals tablet) pantoprazole 40 mg tablet,delayed 40 mg PO DAILY 06/09/12 08/12/23 release insulin detemir U-100 100 unit/mL 25 unit subcut PC & HS 05/07/21 08/12/23 (3 mL) subcutaneous pen (Levemir FlexTouch U-100 Insulin) lisinopril 5 mg tablet 5 mg PO DAILY 05/07/21 08/12/23 ipratropium bromide 42 mcg (0.06 2 spray intranasal QHS PRN allergy 12/05/21 08/12/23 %) nasal spray symptoms #15 mL triamcinolone acetonide 0.1 % 1 applic topical BID 04/07/22 08/12/23 topical cream calcium citrate 500 mg PO BID 05/05/22 08/12/23 desoximetasone 0.25 % topical 1 applic topical BID 05/05/22 08/12/23 ointment metformin 500 mg tablet 1,000 mg PO BID 05/05/22 08/12/23 mupirocin 2 % topical ointment 1 applic topical BID #22 grams 01/07/23 08/12/23 betamethasone dipropionate 0.05 % 1 applic topical BID 04/01/23 08/12/23 topical ointment dulaglutide 1.5 mg/0.5 mL 1.5 mg subcut QWEEK 04/01/23 08/12/23 subcutaneous pen injector (Trulicity) ketoconazole 2 % topical cream 1 applic topical BID 04/01/23 08/12/23 potassium chloride 20 mEq 20 meq PO DAILY 04/01/23 08/12/23 tablet,extended release(part/cryst) (Klor-Con M) fluoride (sodium) 1.1 % dental 1 applic dental DAILY 06/08/23 08/12/23 paste Previous Rx's Medication Instructions Recorded ipratropium bromide 42 mcg (0.06 2 spray intranasal QHS PRN allergy 12/05/21 %) nasal spray symptoms #15 mL mupirocin 2 % topical ointment 1 applic topical BID #22 grams 01/07/23 Allergies Allergy/AdvReac Type Severity Reaction Status Date / Time tolnaftate Allergy Intermediate bower his Verified 06/09/23 09:27 skin off cephalexin [Cephalexin] Allergy Mild Skin Rash Verified 06/09/23 09:27 Penicillins Allergy Mild unknown Verified 06/09/23 09:27 sulfamethoxazole Allergy Unknown Hives Verified 06/09/23 09:27 [From Bactrim] trimethoprim [From Bactrim] Allergy Unknown Hives Verified 06/09/23 09:27 adhesive Allergy rash Verified 06/09/23 09:27 bacitracin Allergy rash Verified 06/09/23 09:27 latex Allergy rash Verified 06/09/23 09:27 neomycin [Neomycin] Allergy rash Verified 06/09/23 09:27 penicillin V Allergy Other (See Verified 06/09/23 09:27 Comment) General Stated Complaint: Epigastric Pain/Over45 ZEUS: 3 Review of Systems Narrative: see HPI Exam Narrative Exam Narrative: General: Alert, non-toxic, appears to be in pain Head: Normocephalic, atraumatic Neck: Trachea midline, ?Neck supple. ENT: ?MMM.? No oropharygeal lesions or exudate. Cardiac: ?RRR, no murmurs appreciated Resp: No respiratory distress. CTAB. Abd: ?Soft, non-distended. Epigastric tenderness with voluntary guarding. No rebound. RUQ TTP, + brown's. No lower abodminal tenderness. : ?No suprapubic tenderness. Extremities: ?No deformities.? Neurologic: GCS 15. ? Moves all extremities freely against gravity Course Vital Signs Vital signs: Vital Signs Temperature 36.3 C L 08/12/23 01:07 Pulse 81 08/12/23 01:07 Respiratory Rate 14 08/12/23 01:07 Blood Pressure 112/65 08/12/23 01:07 Pulse Oximetry 98 08/12/23 01:07 Temperature 36.3 C L 08/12/23 01:07 Temperature Source Temporal Artery Scan 08/12/23 01:07 Pulse 77 08/12/23 02:00 Pulse 95 H 08/12/23 02:01 Respiratory Rate 24 08/12/23 02:01 Respiratory Effort Normal 08/12/23 01:18 Blood Pressure 164/84 H 08/12/23 02:00 Blood Pressure Mean 105 08/12/23 02:00 Blood Pressure Position Sitting 08/12/23 01:07 Pulse Oximetry 97 08/12/23 02:01 Oxygen Delivery Method Room Air 08/12/23 01:07 Oxygen Flow Rate 0 08/12/23 01:07 Pain Level 8 08/12/23 01:28 Lab/Test Results Lab/Test Results: Laboratory Tests Range/Units 08/12/23 00:55 WBC (4.4-10.8) 10^3/uL 6.67 RBC (4.36-5.78) 10^6/uL 3.97 L Hgb (13.5-17.5) g/dL 12.0 L Hct (40.0-50.0) % 36.6 L MCV (80-95) fL 92 MCH (27.0-33.0) pg 30.2 MCHC (32.0-36.0) % 32.8 RDW (11.8-14.1) % 14.1 Plt Count (130-400) 10^3/uL 342 MPV (8.0-11.0) fL 9.1 Immature Gran % % 0.3 Neutrophils % % 67.6 Lymphocytes % % 17.8 Monocytes % % 8.7 Eosinophils % % 4.9 Basophils % % 0.7 Nucleated RBC % (0.0-0.3) % 0.0 Absolute Neutrophils (1.2-6.7) 10^3/uL 4.50 Absolute Lymphocytes (1.2-3.4) 10^3/uL 1.19 L Absolute Monocytes (0.1-0.8) 10^3/uL 0.58 Absolute Eosinophils (0.0-0.7) 10^3/uL 0.33 Absolute Basophils (0.0-0.2) 10^3/uL 0.05 PT (9.1-11.1) sec 10.5 INR (0.9-1.1) 1.0 APTT (23.6-32.8) sec 27.3 Sodium (136-145) mmol/L 138 Potassium (3.5-5.1) mmol/L 4.0 Chloride (98-107) mmol/L 102 Carbon Dioxide (21.0-32.0) mmol/L 29.9 Anion Gap (3-11) mmol/L 6.1 BUN (7-18) mg/dL 35 H Creatinine (0.70-1.30) mg/dL 1.3 Est GFR (CKD-EPI 2020) (mL/min/1.73m2) 56.23 Glucose (74-106) mg/dL 127 H Calcium (8.5-10.1) mg/dL 9.2 Magnesium (1.8-2.4) mg/dL 1.8 Total Bilirubin (0.2-1.0) mg/dL 1.0 AST (15-37) U/L 215 H ALT (16-63) U/L 124 H Alkaline Phosphatase (46-116) U/L 318 H Troponin I (< or =60) ng/L < 50 Total Protein (6.4-8.2) g/dL 6.7 Albumin (3.4-5.0) g/dL 3.0 L Lipase (16-77) U/L 45 Medical Decision Making 78yo M with hx HTN, DM, GERD, ROCÍO, gastric bypass, presenting for acute epigastric pain. Woke at round 2300 this evening with severe sharp epigastric pain radiating into his back. Tried tums with no relief. Had a few similar episodes earlier this week which were not as severe and resolved without intervention. Given 325 ASA from EMS. Vital signs reassuring on arrival. Epigastric tenderness on exam with + borwn's highly concerning for acute/surgical gallbladder pathology. No US available overnight. Will evaluate for this and other causes including ACS, pancreatitis, bowel obstruction, etc with labs and CT imaging. Morphine and zofran for symptoms. -EKG SR with no ST segment or T wave abnormalities to suggest occlusive mI. -Labs reviewed as below, CBC reassuring with no leukocytosis, CMP with elevated ALP/AST/ALT with normal bilirubin, lipase normal (not pancreatitis), coags normal, troponin negative. -CT independently reviewed, no obstruction or free fluid on my view, agree with radiology read below with concern for cholecystitis. Not concerned for ascending cholangitis at this time. With CBD normal on CT scan unlikely choledocolithiasis. -Repeat EKG sinus tachycardia, repeat troponin normal. Discussed with surgery Dr. Lovell. Not felt to be clearly cholecystitis given lack of fever and leukocytosis, I offered to hold the patient in the ED pending US availability in the morning for further evaluation. After discussion, patient accepted for admission; requested bridging orders be placed which was done. Awaiting transfer to the floor. Imaging Data Radiologic Study: Imaging: CT Scan Radiologist's impression: IMPRESSION: 1. No evidence of aortic dissection or pulmonary embolism. 2. Cholelithiasis with possible findings of acute cholecystitis. Correlate with ultrasound or HIDA scan if indicated. Lab Data Lab results reviewed: Yes I reviewed the patient's lab results. Labs: Laboratory Tests Range/Units 08/12/23 00:55 WBC (4.4-10.8) 10^3/uL 6.67 RBC (4.36-5.78) 10^6/uL 3.97 L Hgb (13.5-17.5) g/dL 12.0 L Hct (40.0-50.0) % 36.6 L MCV (80-95) fL 92 MCH (27.0-33.0) pg 30.2 MCHC (32.0-36.0) % 32.8 RDW (11.8-14.1) % 14.1 Plt Count (130-400) 10^3/uL 342 MPV (8.0-11.0) fL 9.1 Immature Gran % % 0.3 Neutrophils % % 67.6 Lymphocytes % % 17.8 Monocytes % % 8.7 Eosinophils % % 4.9 Basophils % % 0.7 Nucleated RBC % (0.0-0.3) % 0.0 Absolute Neutrophils (1.2-6.7) 10^3/uL 4.50 Absolute Lymphocytes (1.2-3.4) 10^3/uL 1.19 L Absolute Monocytes (0.1-0.8) 10^3/uL 0.58 Absolute Eosinophils (0.0-0.7) 10^3/uL 0.33 Absolute Basophils (0.0-0.2) 10^3/uL 0.05 PT (9.1-11.1) sec 10.5 INR (0.9-1.1) 1.0 APTT (23.6-32.8) sec 27.3 Sodium (136-145) mmol/L 138 Potassium (3.5-5.1) mmol/L 4.0 Chloride (98-107) mmol/L 102 Carbon Dioxide (21.0-32.0) mmol/L 29.9 Anion Gap (3-11) mmol/L 6.1 BUN (7-18) mg/dL 35 H Creatinine (0.70-1.30) mg/dL 1.3 Est GFR (CKD-EPI 2020) (mL/min/1.73m2) 56.23 Glucose (74-106) mg/dL 127 H Calcium (8.5-10.1) mg/dL 9.2 Magnesium (1.8-2.4) mg/dL 1.8 Total Bilirubin (0.2-1.0) mg/dL 1.0 AST (15-37) U/L 215 H ALT (16-63) U/L 124 H Alkaline Phosphatase (46-116) U/L 318 H Troponin I (< or =60) ng/L < 50 Total Protein (6.4-8.2) g/dL 6.7 Albumin (3.4-5.0) g/dL 3.0 L Lipase (16-77) U/L 45 Quality:SDOH Health Related Social Needs: No Data to Display PFSH All Active Problems (Updated 08/12/23 @ 05:[address] Travis MD) Acute cholecystitis (Acute) Localized edema (Acute) Adverse reaction to viral vaccines (Acute) Type 2 diabetes mellitus without complication (Acute) Acquired hammertoe of left foot (Acute) Left hip pain (Acute) Fecal urgency (Acute) Hammertoe of left foot (Acute) Diabetes mellitus type 2 in nonobese (Acute) Candidal intertrigo (Acute) Sleep apnea (Acute) Sensorineural hearing loss (SNHL) of both ears (Acute) Cough (Acute) Edema (Acute) Onychomycosis (Acute) Corns and callosities (Acute) Nail dystrophy (Acute) Nasal obstruction (Acute) Nasal vestibulitis (Acute) Conductive hearing loss, external ear (Acute) Impacted cerumen, bilateral (Acute) Sensorineural hearing loss of combined sites, bilateral (Acute 11/16/14) Medical History Venous (peripheral) insufficiency Hearing loss ROCÍO (obstructive sleep apnea) Excessive cerumen in ear canal Kidney stones GERD (gastroesophageal reflux disease) Diabetes mellitus HTN (hypertension) Surgical History Hx of gastric bypass S/P gastric bypass Family History Mother Hypertension Social History Smoking/Tobacco Use Status: Former Tobacco Use Tobacco: How many years used: 3 Smoking risk assessment performed?: Yes Alcohol Intake: never Drug use: Never Substance use type: does not use current occupation: retired Do you feel safe at home: Yes Do you feel safe in your relationship?: Yes
[2023-08-12] MEDS: MORPHine 4 MG/ML SYR IVP ×2 (02:10→04:03)
[2023-08-12] MEDS: Ondansetron 4 MG/2 ML VIAL IVP (02:11)
--- NOTE | 2023-08-12 03:55 | DI.VRAD_ITS ---
Addendum created by Ignacio Branch MD on 08/12/2023 4:13:55 AM EDT: No significant intrahepatic biliary dilatation. The visualized common bile duct is top limits of normal in diameter. No definite common duct stones are visualized. Initial report created on 08/12/2023 3:55:08 AM EDT: PROCEDURE INFORMATION: Exam: CTA Chest With Contrast Exam date and time: 08/12/2023 1:43 AM Age: 78 years old Clinical indication: Prior surgery; Surgery date: 6+ months; Surgery type: Gastric bypass; Patient HX: Epigastric pain radiating into back TECHNIQUE: Imaging protocol: Computed tomographic angiography of the chest with contrast. Exam focused on the arteries. 3D rendering (Not supervised by radiologist): MIP and/or 3D reconstructed images were created by the technologist. Radiation optimization: All CT scans at this facility use at least one of these dose optimization techniques: automated exposure control; mA and/or kV adjustment per patient size (includes targeted exams where dose is matched to clinical indication); or iterative reconstruction. Contrast material: OMNIPAQUE 350; Contrast volume: 100 ml; Contrast route: INTRAVENOUS (IV); COMPARISON: CT ABDOMEN PELVIS W 07/05/2021 21:51 FINDINGS: Pulmonary arteries: No evidence of pulmonary embolism. Aorta: Normal thoracic and visualized abdominal aorta without aneurysm or dissection. Lungs: Bibasilar dependent atelectasis. Pleural spaces: No pleural effusion or pneumothorax. Heart: Unremarkable. No cardiomegaly. No pericardial effusion. Lymph nodes: Unremarkable. No enlarged lymph nodes. Diaphragm: Small hiatal hernia. Upper abdomen: Cholelithiasis. Possible gallbladder wall thickening. Nodular adrenal glands bilaterally. Bones/joints: No fracture. Soft tissues: Unremarkable. IMPRESSION: 1. No evidence of aortic dissection or pulmonary embolism. 2. Cholelithiasis with possible findings of acute cholecystitis. Correlate with ultrasound or HIDA scan if indicated. Dictated and Authenticated by: Ignacio Branch MD. Ordering:MAHESH Yun MD
--- NOTE | 2023-08-12 04:15 | RT.EKG_ITS ---
APPROVED REPORT Exam: Resting ECG Reason for Exam: changes Patient Location: E HR:122 bpm ECG Measurements Heart Rate 122 AXIS DE 272 P 0 QRSd 160 QRS -25 QT 409 T 20 QTc 581 Conclusion Sinus tachycardia...rate> 99 Prolonged DE interval...DE >210, V-rate 121-300 Left atrial enlargement...P, P'>60mS, <-0.15mV V1 Right bundle branch block...QRSd>120, terminal axis(90,270) Inferior infarct, old...Q >35mS, II III aVF no ST segment or T wave abnormalitites to suggest occlusive OK
[2023-08-12 04:54] LABS: ALT 197 U/L (16-63); AST 296 U/L (15-37); Alkaline Phosphatase 375 U/L (46-116); BUN 32 mg/dL (7-18); Bilirubin, Total 1.7 mg/dL (0.2-1.0); CREATININE 1.2 mg/dL (0.70-1.30); Calcium 9.3 mg/dL (8.5-10.1); Chloride 101 mmol/L (98-107); Glucose 130 mg/dL (74-106); Potassium 3.7 mmol/L (3.5-5.1); Sodium 141 mmol/L (136-145); Total Protein 6.7 g/dL (6.4-8.2)
[2023-08-12 04:56] LABS: Troponin I < 50 ng/L (< or =60)
[2023-08-12] MEDS: ERTAPENEM 1 GM in Normal Saline 50 ML IVPB (06:07)
[2023-08-12] MEDS: Normal Saline 1,000 ML 150 ML IV (06:07)
--- NOTE | 2023-08-12 08:14 | W.SURGCON ---
Date of service: 08/12/23 Time of Service: 09:00 Assessment and Plan Assessment and plan (1) Abdominal pain: Status: Acute Assessment and plan: 78-year-old man with acute and worsening abdominal discomfort over the last 24 hours that seems isolated to the epigastric and right upper quadrant region. Certainly very suspicious for gallbladder disease although he does not have a De La Vega sign on exam. His repeat lab work this morning shows his bilirubin is up?trending though he does not have a white count. I wonder if he has a common duct stone. His tachycardia is concerning but I think are related to dehydration both from being in the sun working yesterday as well as the acute process. He needs resuscitation. He does take Lasix, 80 mg daily. We will hold that today. He has a lot of antibiotic allergies but is now on broad-spectrum antibiotics which should have adequate coverage for the biliary tree bacterias. This may be early ascending cholangitis that he is presenting with rather than acute cholecystitis. This could proved to be a difficult situation for him if he needs an ERCP because of his surgical history. He would need to have a laparoscopic?assisted ERCP through the remnant stomach that is bypassed. Either that or a laparoscopic common duct exploration. The differential diagnosis does include marginal ulcer disease from a pain perspective but with the uptrending LFTs, that is less likely compared with the biliary tree. Overall plan: IV fluid resuscitation Broad-spectrum antibiotics Urgent MRCP to assess the common duct If patient has common bile duct stone/obstruction, he will need to be transferred to tertiary center for laparoscopic?assisted ERCP and/or laparoscopic cholecystectomy with a common bile duct exploration DVT prophylaxis Trend LFTs/bilirubin History of Present Illness Narrative: 78-year-old man has been not feeling 100% for the last 24 to 36 hours according to both him and his daughter who is at the bedside with him. 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 Later yesterday afternoon he started having severe abdominal pain and in the middle the night his daughter brought him to the hospital. Today at the bedside he says the pain is a little bit less severe than it was in the middle the night but he is still having constant pain. The pain is centered over his epigastric region and somewhat to the right?side of his abdomen and is not moving or changing. It is constant. He has not really had pain like this before. He has a surgical history of an open gastric bypass a few decades ago. [facility] All Active Problems (Updated 08/12/23 @ 13:19 by Ricky Lovell MD) Abdominal pain (Acute) Acute cholecystitis (Acute) Localized edema (Acute) Adverse reaction to viral vaccines (Acute) Type 2 diabetes mellitus without complication (Acute) Acquired hammertoe of left foot (Acute) Left hip pain (Acute) Fecal urgency (Acute) Hammertoe of left foot (Acute) Diabetes mellitus type 2 in nonobese (Acute) Candidal intertrigo (Acute) Sleep apnea (Acute) Sensorineural hearing loss (SNHL) of both ears (Acute) Cough (Acute) Edema (Acute) Onychomycosis (Acute) Corns and callosities (Acute) Nail dystrophy (Acute) Nasal obstruction (Acute) Nasal vestibulitis (Acute) Conductive hearing loss, external ear (Acute) Impacted cerumen, bilateral (Acute) Sensorineural hearing loss of combined sites, bilateral (Acute 11/16/14) Medical History Venous (peripheral) insufficiency Hearing loss ROCÍO (obstructive sleep apnea) Excessive cerumen in ear canal Kidney stones GERD (gastroesophageal reflux disease) Diabetes mellitus HTN (hypertension) Surgical History Hx of gastric bypass S/P gastric bypass Family History Mother Hypertension Social History Smoking/Tobacco Use Status: Former Tobacco Use Tobacco: How many years used: 3 Smoking risk assessment performed?: Yes Alcohol Intake: never Drug use: Never Substance use type: does not use Housing: house current occupation: retired Do you feel safe at home: Yes Do you feel safe in your relationship?: Yes Exam Narrative Exam Narrative: General: Tired but otherwise not overtly toxic in appearance. He does seem somewhat uncomfortable but is able to converse and provide a history. Neuro: Alert and oriented x 3 Psych: Reasonable mood and affect, tired, otherwise good insight and understanding into his conditions and history Chest: Nonlabored breathing and is not notably tachypneic. He does cough at the bedside multiple times. Heart: Tachycardic rate of 116, regular rhythm Head: Mucous membranes are mildly dry with his oropharynx appears dry and his tongue appears dry Abdomen: Soft, obese, not notably distended, tender in the right upper quadrant though De La Vega sign is negative. There are no peritoneal signs. Results Last Vital Signs Temp 98.6 F 08/12/23 05:48 Pulse 126 H 08/12/23 05:48 Resp 20 08/12/23 05:48 BP 111/62 08/12/23 05:48 Pulse Ox 94 08/12/23 08:12 Labs 08/12/23 00:55 08/12/23 04:01 Labs: Laboratory Results - last 24 hr 08/12/23 08/12/23 00:55 04:01 WBC 6.67 RBC 3.97 L Hgb 12.0 L Hct 36.6 L MCV 92 MCH 30.2 MCHC 32.8 RDW 14.1 Plt Count 342 MPV 9.1 Immature Gran % 0.3 Neutrophils % 67.6 Lymphocytes % 17.8 Monocytes % 8.7 Eosinophils % 4.9 Basophils % 0.7 Nucleated RBC % 0.0 Absolute Neutrophils 4.50 Absolute Lymphocytes 1.19 L Absolute Monocytes 0.58 Absolute Eosinophils 0.33 Absolute Basophils 0.05 PT 10.5 INR 1.0 APTT 27.3 Sodium 138 141 Potassium 4.0 3.7 Chloride 102 101 Carbon Dioxide 29.9 30.0 Anion Gap 6.1 10.0 BUN 35 H 32 H Creatinine 1.3 1.2 Est GFR (CKD-EPI 2020) 56.23 61.90 Glucose 127 H 130 H Calcium 9.2 9.3 Magnesium 1.8 Total Bilirubin 1.0 1.7 H AST 215 H 296 H ALT 124 H 197 H Alkaline Phosphatase 318 H 375 H Troponin I < 50 < 50 Total Protein 6.7 6.7 Albumin 3.0 L 3.0 L Lipase 45
--- NOTE | 2023-08-12 09:40 | PDOC.CMIN ---
Date of service: 08/12/23 Time of Service: 09:40 Care Management Initial Assmt Initial Assessment Reason for Hospitalization: acute cholecystitis Functional Status/Living Situation Town of Residence: [place] Resides with: Spouse (Joana) Significant Other/Family: Local Caregiver/Guardian: N/A Natural Supports: Suleman lives in a single family home in [place] with his Joana and his daughter Mansi and her 3 children ages, 22,20 and 4 1/2. Employment Status: Retired (worked for the [employer]) Instrumental Activities of Daily Living (ADLs): Independent Medications Medication Management: No Issues/Barriers identified Physical Functioning/Mobility Assistive Device: none Advance Directives Advance Directives: Do you have an Advance Directive: Y 03/17/22 10:08 AD On File at [facility]: Y 05/20/23 16:08 Date Asked AD Date Reviewed 08/12/23 08/12/23 02:45 COLST On File at [facility] COLST Date Scanned Comment: [facility]- Mansi Pitts, daughter Code Status Resuscitation Status Full Code Insurance Coverage/Financial Issues Insurance: [employer] Medicare Replacement ACO Member: Yes Care Team Visit Care Team Role Provider Type PAYAL LICEA NP Primary Care Provider NON-[facility] STAFF PHYSICIAN Court Travis MD Emergency Provider [facility] STAFF PHYSICIAN El Stokes MD Admit Provider [facility] STAFF PHYSICIAN Attending Provider Discharge Potential Discharge Needs: Surgical F/U Appt Anticipated Barriers to Discharge: None Identified Patient/Family Education Needs: Review discharge instructions, discuss Ask Me Three and Other (diet, activity, limitations, follow up plan) Transportation: Private vehicle Plan: Serg is scheduled to have a cholecystectomy tomorrow morning.Anticipate he will be discharged home with no new services when medically stable. He will follow up with his surgeon and plan of care and transport with family. CM will follow and continue to assess for discharge needs. PFSH All Active Problems (Updated 08/12/23 @ 13:19 by Ricky Lovell MD) Abdominal pain (Acute) Acute cholecystitis (Acute) Localized edema (Acute) Adverse reaction to viral vaccines (Acute) Type 2 diabetes mellitus without complication (Acute) Acquired hammertoe of left foot (Acute) Left hip pain (Acute) Fecal urgency (Acute) Hammertoe of left foot (Acute) Diabetes mellitus type 2 in nonobese (Acute) Candidal intertrigo (Acute) Sleep apnea (Acute) Sensorineural hearing loss (SNHL) of both ears (Acute) Cough (Acute) Edema (Acute) Onychomycosis (Acute) Corns and callosities (Acute) Nail dystrophy (Acute) Nasal obstruction (Acute) Nasal vestibulitis (Acute) Conductive hearing loss, external ear (Acute) Impacted cerumen, bilateral (Acute) Sensorineural hearing loss of combined sites, bilateral (Acute 11/16/14) Medical History Venous (peripheral) insufficiency Hearing loss ROCÍO (obstructive sleep apnea) Excessive cerumen in ear canal Kidney stones GERD (gastroesophageal reflux disease) Diabetes mellitus HTN (hypertension) Surgical History Hx of gastric bypass S/P gastric bypass Family History Mother Hypertension Social History Smoking/Tobacco Use Status: Former Tobacco Use Tobacco: How many years used: 3 Smoking risk assessment performed?: Yes Alcohol Intake: never Drug use: Never Substance use type: does not use Housing: house current occupation: retired Do you feel safe at home: Yes Do you feel safe in your relationship?: Yes SDOH(Care Management) Screening Will the Patient Participate in the Screening?: Unable to obtain Do you worry about having a steady place to live?: no Problems where you live: no known problems In the past 12 months, have you had to go without electric, gas, oil or water in your home?: no Have you or anyone in your house had to go without enough food to eat?: no Has lack of transportation kept you from medical appointments or from doing things needed for daily living?: no Has anyone in your support network made you feel unsafe for any reason?: no
[2023-08-12] MEDS: Lactated Ringers 1,000 ML 125 ML IV ×2 (10:18→20:15)
[2023-08-12] MEDS: ACETAMINOPHEN 1,000 MG/100 ML BTL 400 MG IVPB ×3 (10:34→21:59)
--- NOTE | 2023-08-12 12:30 | DI.MRI_ITS ---
Exam(s) MR ABDOMEN WO EXAM: MR ABDOMEN WO CLINICAL HISTORY: rule out CBD stone TECHNIQUE: Multiplanar multisequence MRI was performed without IV contrast. MRCP was also performed . COMPARISON: CT RENAL COLIC WO CONTRAST from 09/30/[address] [facility] CTA from 08/12/2023 FINDINGS: VISUALIZED LUNG BASES: No pleural effusions evident. There is mild perihepatic ascites. LIVER: There is an element of steatosis. There are no discrete focal hepatic lesions evident althoug h there does appear to be some periportal edema evident BILIARY/MRCP: The gallbladder is moderately distended. There is a prominent density at the mid aspec t of the gallbladder not far from the fundus which measures approximately 3.5 by 2.3 cm consistent wi th gallstone. There appear to be smaller densities in the gallbladder neck region. There is pericho lecystic fluid consistent with acute cholecystitis. The CBD diameter is upper normal for this age gr oup, measuring 6-7 mm. There are no obvious calculi in the CBD. PANCREAS: There is a non unilocular multi-septated cystic pancreatic lesion partially exophytic off t he medial aspect of the uncinateprocess, this measuring 3.5 cm wide by 1.7 cm AP by 2.5 cm height and appearing to be in communication with the pancreatic duct SPLEEN: Spleen is not enlarged and there are no intrasplenic lesions.Splenic and portal veins are pat ent ADRENALS: There are no significant adrenal masses. KIDNEYS: Right kidney unremarkable. There is a benign cortical cyst in the posterior aspect of the l eft kidney which measures 0.9 cm by 0.9 cm.This does not require further follow-up. There are no [place] id renal masses. No hydronephrosis. ABDOMINAL AORTA: Not enlarged and there is no significant para-aortic adenopathy. ANTERIOR ABDOMINAL WALL/GI: There is no evidence of significant anterior abdominal wall hernia in the field of view of this study.Is no evidence of obvious bowel obstruction. OSSEOUS: Mild-moderate degenerative scoliosis noted. OTHER: There is a moderate size hiatal hernia. There is a suggestion of possible prior gastric surge ry. IMPRESSION: 1. Cholelithiasis and evidence of acute cholecystitis. There is mild distension of the gallbladder a nd there is gallbladder wall edema and mild pericholecystic fluid. 2. CBD is not dilated and there are no obvious calculi within the CBD. 3. There is a non unilocular cystic mass in the medial aspect of the uncinate process of the pancreas , appearing to communicate with the pancreatic duct. This measures 3.5 cm x 1.7 cm x 2.5 cm. 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 Should undergo appropriate referral at this time as it measures greater than 3 cm. 4. Moderate size hiatal hernia. Also suggestion of possible prior gastric surgery. DATA REPOSITORY:
--- NOTE | 2023-08-12 12:48 | PHA.REVIEW2 ---
Pharmacy Admission Review Admission Clinical Review Admission Pharmacy Review: tolnaftate Allergy (Intermediate, Verified 06/09/23 09:) bower his skin off cephalexin [Cephalexin] Allergy (Mild, Verified 06/09/23:) Skin Rash Penicillins Allergy (Mild, Verified 06/09/23:) unknown sulfamethoxazole [From Bactrim] Allergy (Unknown, Verified 06/09/23 09:) Hives trimethoprim [From Bactrim] Allergy (Unknown, Verified 06/09/23) Hives adhesive Allergy (Verified 06/09/23) rash bacitracin Allergy (Verified 06/09/23:) rash latex Allergy (Verified 06/09/23) rash neomycin [Neomycin] Allergy (Verified 06/09/23) rash penicillin V Allergy (Verified 06/09/23) Other (See Comment) Resuscitation Status Full Code Height 5 ft 7 in Weight 103.1 kg Pharmacy Admission Review Renal Dosing Renal Dosing: BUN 32 mg/dL (7-18) H 08/12/23 04:01 Creatinine 1.2 mg/dL (0.70-1.30) 08/12/23 04:01 Medications needing adjustments: Reviewed (CrCl 58 mL/min) List of meds needing interventions: Current medications are okay Anticoagulation Anticoagulation: Hgb 12.0 g/dL (13.5-17.5) L 08/12/23 00:55 Hct 36.6 % (40.0-50.0) L 08/12/23 00:55 Plt Count 342 10^3/uL (130-400) 08/12/23 00:55 INR 1.0 (0.9-1.1) 08/12/23 00:55 Creatinine 1.2 mg/dL (0.70-1.30) 08/12/23 04:01 DVT Prophylaxis: Reviewed (None at this time, surgery consult today) Opiate Usage Evaluate Pain Scale/Pains Meds: Reviewed (PRN morphine - has received 3 doses so far) Scheduled Bowel Reg ordered if on Opiates?: No Relevant Labs Relevant Labs: Sodium 141 mmol/L (136-145) 08/12/23 04:01 Potassium 3.7 mmol/L (3.5-5.1) 08/12/23 04:01 Chloride 101 mmol/L (98-107) 08/12/23 04:01 Magnesium 1.8 mg/dL (1.8-2.4) 08/12/23 00:55 Electrolytes, C-Reactive P, ESR: Reviewed (Hgb 12, AST/ALT 296/197) DM Control DM Control: Glucose 130 mg/dL (74-106) H 08/12/23 04:01 DM Control: Reviewed Insulin Dosing, Diabetic Medication: No orders at this time Cardiac Review Cardiac Review: Troponin I < 50 ng/L (< or =60) 08/12/23 04:01 BP, HR, EF%: Reviewed (HR 100, BP WNL) QTc Review QTc: Reviewed (581 from 08/11) List meds needing interventions: Has order for ondansetron but hasn't required any doses IV to PO Switch IV Medications: Reviewed (NPO pending potential surgery) Home Meds Home Med List reviewed: Reviewed Relevent Home Meds Not ordered & why?: None ordered at this time. Patient currently NPO pending potential surgery. Reach out to provider once patient is able to take PO meds if not ordered. Current Meds Current Medication Order Review: Reviewed Pharmacy Antibiotic Review Relevant Labs: WBC 6.67 10^3/uL (4.4-10.8) 08/12/23 00:55 Temperature 37.4 C Temperature 37.8 C Temperature 37.0 C Temperature 37.0 C Temperature 36.8 C Temperature 36.3 C Pharmacy Antibiotic Activity: Reviewed, no change Comments: Patient is on ertapenem 1g q24h, day 2, for cholecystitis. Patient had an elevated temperature of 37.8 at 1153
--- NOTE | 2023-08-12 14:00 | W.PM.PROGNOT ---
Date of Service Date of service: 08/12/23 Time of Service: 14:00 Assessment and Plan Assessment and plan (1) Acute cholecystitis: Status: Acute Assessment and plan: 78-year-old man with acute cholecystitis on MRI. No common duct obstruction. 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 Overall plan: Laparoscopic cholecystectomy tomorrow. He is on antibiotic coverage for the biliary tree Subjective Subjective Interval history since last seen: MRCP shows acute cholecystitis and no dilated duct or common duct stone/obstruction. Objective Last Vital Signs Temp 98.2 F 08/12/23 13:06 Pulse 100 H 08/12/23 12:44 Resp 93 H 08/12/23 13:06 BP 102/62 08/12/23 12:44 Pulse Ox 94 08/12/23 12:44 Laboratory Results - last 24 hr 08/12/23 08/12/23 00:55 04:01 WBC 6.67 RBC 3.97 L Hgb 12.0 L Hct 36.6 L MCV 92 MCH 30.2 MCHC 32.8 RDW 14.1 Plt Count 342 MPV 9.1 Immature Gran % 0.3 Neutrophils % 67.6 Lymphocytes % 17.8 Monocytes % 8.7 Eosinophils % 4.9 Basophils % 0.7 Nucleated RBC % 0.0 Absolute Neutrophils 4.50 Absolute Lymphocytes 1.19 L Absolute Monocytes 0.58 Absolute Eosinophils 0.33 Absolute Basophils 0.05 PT 10.5 INR 1.0 APTT 27.3 Sodium 138 141 Potassium 4.0 3.7 Chloride 102 101 Carbon Dioxide 29.9 30.0 Anion Gap 6.1 10.0 BUN 35 H 32 H Creatinine 1.3 1.2 Est GFR (CKD-EPI 2020) 56.23 61.90 Glucose 127 H 130 H Calcium 9.2 9.3 Magnesium 1.8 Total Bilirubin 1.0 1.7 H AST 215 H 296 H ALT 124 H 197 H Alkaline Phosphatase 318 H 375 H Troponin I < 50 < 50 Total Protein 6.7 6.7 Albumin 3.0 L 3.0 L Lipase 45 Time Spent with Patient Time Spent with Patient: <25 minutes Time was spent: indepentently interpreting results
[2023-08-12] MEDS: Heparin 5,000 UNITS/ML VIAL 5000 UNITS SC (14:18)
--- NOTE | 2023-08-12 14:46 | NUR.NOTE ---
Per Dr. Lovell, pt will go to the OR in the morning for a lap choly. To remain NPO x for sips and chips. Nursing Note:
--- NOTE | 2023-08-12 16:20 | CHAPLAIN ---
Mickey was napping in bed, but woke up when I entered the room. He said he's waiting to hear from the hospitalist about how he's doing today before reaching to family. He asked for help getting the phone closer to him. I explained my role and offered support.
--- NOTE | 2023-08-12 16:38 | NUR.NOTE ---
Surgeon paged for temp of 39.1 and HR 124, LR bolus of 500 ml ordered and given. Will monitor. Nursing Note:
[2023-08-12] MEDS: Lactated Ringers 500 ML IV ×2 (17:10→20:30)
[2023-08-13] VITALS (19 sets, daily range): BP systolic 82–131; BP diastolic 53–90; PULSE 71–111; RESP 13–22; TEMP 36.5–37.8; O2SAT 94–99; BMI 35.6
[2023-08-13] MEDS: Lactated Ringers 500 ML IV (01:25)
[2023-08-13] MEDS: Heparin 5,000 UNITS/ML VIAL 5000 UNITS SC ×2 (01:55→19:22)
[2023-08-13] MEDS: ACETAMINOPHEN 1,000 MG/100 ML BTL 400 MG IVPB ×4 (04:14→22:30)
[2023-08-13] MEDS: ERTAPENEM 1 GM in Normal Saline 50 ML IVPB (04:39)
[2023-08-13] MEDS: Lactated Ringers 1,000 ML 125 ML IV ×2 (06:14→14:32)
[2023-08-13] MEDS: MORPHine 4 MG/ML SYR IVP ×3 (06:20→23:03)
[2023-08-13 07:05] LABS: HCT 35.7 % (40.0-50.0); HGB 11.8 g/dL (13.5-17.5); MCH 30.6 pg (27.0-33.0); MCHC 33.1 % (32.0-36.0); MCV 93 fL (80-95); MPV 9.7 fL (8.0-11.0); Platelet Count 233 10^3/uL (130-400); RBC 3.86 10^6/uL (4.36-5.78); RDW 14.7 % (11.8-14.1); RDW-SD 50.3 fL; WBC 5.01 10^3/uL (4.4-10.8)
[2023-08-13 07:11] LABS: ALT 275 U/L (16-63); AST 204 U/L (15-37); Albumin 2.5 g/dL (3.4-5.0); Alkaline Phosphatase 372 U/L (46-116); Amylase 24 U/L (25-115); Anion Gap 7.9 mmol/L (3-11); BUN 32 mg/dL (7-18); Bilirubin, Direct 4.4 mg/dL (0.0-0.2); Bilirubin, Total 4.9 mg/dL (0.2-1.0); CO2 29.1 mmol/L (21.0-32.0); CREATININE 1.4 mg/dL (0.70-1.30); Calcium 8.5 mg/dL (8.5-10.1); Chloride 102 mmol/L (98-107); Estimated GFR 51.45 (mL/min/1.73m2); Glucose 131 mg/dL (74-106); Lipase 12 U/L (16-77); Potassium 4.1 mmol/L (3.5-5.1); Sodium 139 mmol/L (136-145); Total Protein 6.3 g/dL (6.4-8.2)
[2023-08-13 07:32] LABS: Absolute Basophil Count 0.15 10^3/uL (0.0-0.2); Absolute Eosinophil Count 0.05 10^3/uL (0.0-0.7); Absolute Lymphocyte Count 0.45 10^3/uL (1.2-3.4); Absolute Neutrophil Count 4.36 10^3/uL (1.2-6.7); Anisocytosis 1+; Bands % 15 %; Diff Comment Manual Differential
[2023-08-13 07:33] LABS: Poikilocytes 1+
--- NOTE | 2023-08-13 07:39 | W.PM.PROGNOT ---
Date of Service Date of service: 08/13/23 Time of Service: 09:40 Assessment and Plan Assessment and plan (1) Acute cholecystitis: Status: Acute Assessment and plan: 78-year-old man with acute cholecystitis. He is hemodynamically stable and no he is still a bit dehydrated this morning he is continuing to slowly improve with fluid resuscitation. We are trying to do this judiciously considering his Lasix?dependent (taking 80 mg a day). Symptomatically he seems to have improved a lot. His pain is a lot less. Interestingly, his bilirubin has jumped up to almost 5. His common duct was clear on MRI and I suspect that he passed a stone during this time and just did not have ductal dilatation. His bilirubin is probably lagging about 24 hours behind the actual events. Hard to believe Morizzi syndrome would put the bilirubin up to 5 though it is possible. Overall plan: Laparoscopic cholecystectomy Maintain antibiotics DVT prophylaxis Continue IV fluid resuscitation Subjective Subjective Interval history since last seen: Patient endorses feeling a lot better today. The pain is not completely gone but has subsided drastically. He has continued to require small boluses of fluid to keep his blood pressure up and his heart rate down and to keep his urine output adequate. He is still dehydrated. We discussed indications for surgery and having surgery and I answered all of his questions Exam Narrative Exam Narrative: General: Nontoxic, comfortable and interactive. Seems to have more energy and more upbeat today. Neuro: Alert and oriented x 3 Psych: Good mood and affect, good insight and understanding into his condition Heart: Regular, 90s Chest: Nonlabored breathing Abdomen: Soft, nondistended, obese, no significant tenderness Objective Last Vital Signs Temp 97.7 F 08/13/23 04:11 Pulse 92 H 08/13/23 04:11 Resp 16 08/13/23 04:11 BP 100/66 08/13/23 04:11 Pulse Ox 94 08/13/23 04:11 Laboratory Results - last 24 hr 08/13/23 06:28 WBC 5.01 RBC 3.86 L Hgb 11.8 L Hct 35.7 L MCV 93 MCH 30.6 MCHC 33.1 RDW 14.7 H Plt Count 233 MPV 9.7 Immature Gran % See Differential Neutrophils % 72.0 Band Neutrophils % 15 Lymphocytes % 9.0 Monocytes % 0.0 Eosinophils % 1.0 Basophils % 3.0 Nucleated RBC % 0.0 Absolute Neutrophils 4.36 Absolute Lymphocytes 0.45 L Absolute Monocytes 0.00 L Absolute Eosinophils 0.05 Absolute Basophils 0.15 RBC Morphology See Below Poikilocytosis 1+ Anisocytosis 1+ Sodium 139 Potassium 4.1 Chloride 102 Carbon Dioxide 29.1 Anion Gap 7.9 BUN 32 H Creatinine 1.4 H Est GFR (CKD-EPI 2020) 51.45 Glucose 131 H Calcium 8.5 Total Bilirubin 4.9 H Conjugated Bilirubin 4.4 H AST 204 H ALT 275 H Alkaline Phosphatase 372 H Total Protein 6.3 L Albumin 2.5 L Amylase 24 L Lipase 12 L Time Spent with Patient Time Spent with Patient: <25 minutes Time was spent: preparing to see the patient(eg.review tests), ordering medications,tests, procedures, referring, communicating with other health career development counselor, indepentently interpreting results and care coordination
[2023-08-13] MEDS: Lactated Ringers 1,000 ML 1000 ML IV (08:59)
[2023-08-13] MEDS: Normal Saline Flush 10 ML SYR IVP ×2 (09:04→19:20)
--- NOTE | 2023-08-13 09:56 | PDOC.CMPRO ---
Date of service: 08/13/23 Time of Service: 09:56 Care Management Progress Note Progress Note Text Progress Note Text: S/O:Serg went to the OR today for a laparoscopic cholecystectomy and was out of the room when CM went to see him. Preop Serg's BP remained soft with SBP 80s to 110 and he was still tachycardic with HR in the 90s to 110. He was medicated for a pain level of 6 around 6:30 am with IV morphine. Serg's and daughter visited with him this morning before surgery and the nurse pre sales network engineer was able to answer their questions. A: Serg is a 78 year old man admitted on 08/12/23 with cholecystitis Discharge Potential Discharge Needs: PCP F/U Appt and Surgical F/U Appt Anticipated Barriers to Discharge: None Identified Patient/Family Education Needs: Review discharge instructions, discuss Ask Me Three and Other (limitations, wound care, follow up plan) Transportation: Private vehicle (with family) Plan: Anticipate Serg will be discharged home with no new services. he will follow up with his surgeon and plan of care and transport with family. CM will contyinue to follow and assess for discharge needs. SDOH(Care Management) Screening Will the Patient Participate in the Screening?: Unable to obtain Do you worry about having a steady place to live?: no Problems where you live: no known problems In the past 12 months, have you had to go without electric, gas, oil or water in your home?: no Have you or anyone in your house had to go without enough food to eat?: no Has lack of transportation kept you from medical appointments or from doing things needed for daily living?: no Has anyone in your support network made you feel unsafe for any reason?: no
--- NOTE | 2023-08-13 11:43 | ANES.PREOP_ITS ---
General Info Date of Service Date Performed: 08/13/23 Height: 5 ft 7 in Weight: 103.1 kg Body Mass Index (BMI): 35.6 Surgical Procedure: Operation Date: 08/13/23 14:25 Proposed Procedure Side Surgeon p Cholecystectomy Laparoscopic Cholangio Ricky Lovell MD Meds Allergies and Home Medications Allergies Allergy/AdvReac Type Severity Reaction Status Date / Time tolnaftate Allergy Intermediate bower his Verified 06/09/23 09:27 skin off cephalexin [Cephalexin] Allergy Mild Skin Rash Verified 06/09/23 09:27 Penicillins Allergy Mild unknown Verified 06/09/23 09:27 sulfamethoxazole Allergy Unknown Hives Verified 06/09/23 09:27 [From Bactrim] trimethoprim [From Bactrim] Allergy Unknown Hives Verified 06/09/23 09:27 adhesive Allergy rash Verified 06/09/23 09:27 bacitracin Allergy rash Verified 06/09/23 09:27 latex Allergy rash Verified 06/09/23 09:27 neomycin [Neomycin] Allergy rash Verified 06/09/23 09:27 penicillin V Allergy Other (See Verified 06/09/23 09:27 Comment) Home Medication Medication Instructions Recorded aspirin 81 mg tablet,delayed 81 mg PO DAILY 06/09/12 release (Aspir-) cholecalciferol (vitamin D3) 25 2,000 units PO DAILY 06/09/12 mcg (1,000 unit) tablet cyanocobalamin (vitamin B-12) 1,000 mcg PO DAILY 06/09/12 1,000 mcg tablet (Vitamin B-12) furosemide 80 mg tablet (Lasix) 80 mg PO DAILY 06/09/12 magnesium 250 mg tablet 500 mg PO DAILY 06/09/12 multivitamin,tx-minerals (Vitamins 1 ea PO DAILY 06/09/12 and Minerals tablet) pantoprazole 40 mg tablet,delayed 40 mg PO DAILY 06/09/12 release insulin detemir U-100 100 unit/mL 25 unit subcut PC & HS 05/07/21 (3 mL) subcutaneous pen (Levemir FlexTouch U-100 Insulin) lisinopril 5 mg tablet 5 mg PO DAILY 05/07/21 ipratropium bromide 42 mcg (0.06 2 spray intranasal QHS PRN allergy 12/05/21 %) nasal spray symptoms #15 mL triamcinolone acetonide 0.1 % 1 applic topical BID 04/07/22 topical cream calcium citrate 500 mg PO BID 05/05/22 desoximetasone 0.25 % topical 1 applic topical BID 05/05/22 ointment metformin 500 mg tablet 1,000 mg PO BID 05/05/22 mupirocin 2 % topical ointment 1 applic topical BID #22 grams 01/07/23 betamethasone dipropionate 0.05 % 1 applic topical BID 04/01/23 topical ointment dulaglutide 1.5 mg/0.5 mL 1.5 mg subcut QWEEK 04/01/23 subcutaneous pen injector (Trulicity) ketoconazole 2 % topical cream 1 applic topical BID 04/01/23 potassium chloride 20 mEq 20 meq PO DAILY 04/01/23 tablet,extended release(part/cryst) (Klor-Con M) fluoride (sodium) 1.1 % dental 1 applic dental DAILY 06/08/23 paste Current Visit Medications: Current Medications Generic Name Dose Route Start Last Admin Trade Name Freq PRN Reason Stop Dose Admin Heparin Sodium (Porcine) 5,000 units 08/12/23 14:00 08/13/23 01:55 Heparin 5,000 Units/Ml Vial SC 5,000 units Q12H RANJEET Administration Ertapenem/Sodium Chloride 1 gm 50 mls @ 100 mls/hr 08/13/23 06:00 08/13/23 06:15 / Sodium Chloride IVPB Infused Q24H RANJEET Infusion Ringer's Solution 1,000 mls @ 125 mls/hr 08/12/23 09:45 08/13/23 06:14 IV 125 mls/hr INFUSION RANJEET Administration Acetaminophen 1,000 mg in 100 mls @ 400 mls/hr 08/12/23 10:00 08/13/23 10:56 Ofirmev IVPB Infused Q6H RANJEET Infusion IV Miscellaneous Supplies 1 each 08/12/23 08:45 Iv Access IV DIRECTED RANJEET Morphine Sulfate 4 mg 08/12/23 02:03 08/13/23 06:20 Morphine 4 Mg/Ml Syr IVP 4 mg Q1H PRN PRN Administration Ondansetron HCl 4 mg 08/12/23 04:25 Ondansetron 4 Mg/2 Ml Vial IVP Q4H PRN PRN Sodium Chloride 0 ml 08/12/23 01:30 08/12/23 01:30 Normal Saline Flush 10 Ml Syr IVP 10 ml PRN PRN Administration Sodium Chloride 0 ml 08/12/23 08:30 08/13/23 09:04 Normal Saline Flush 10 Ml Syr IVP 30 ml BID RANJEET Administration Sodium Chloride 0 ml 08/12/23 04:25 Normal Saline 10 Ml Vial IJ DIRECTED PRN PFSH Active Problems Active Problems: Problem Status Onset Code Abdominal pain R10.9 Acute cholecystitis K81.0 Localized edema R60.0 Adverse reaction to viral vaccines T50.B95A Type 2 diabetes mellitus without complication E11.9 Acquired hammertoe of left foot M20.42 Left hip pain M25.552 Fecal urgency R15.2 Hammertoe of left foot M20.42 Diabetes mellitus type 2 in nonobese E11.9 Candidal intertrigo B37.2 Sleep apnea G47.30 Sensorineural hearing loss (SNHL) of both ears H90.3 Cough R05.9 Edema R60.9 Onychomycosis B35.1 Corns and callosities L84 Nail dystrophy L60.3 Nasal obstruction J34.89 Nasal vestibulitis J34.89 Conductive hearing loss, external ear H90.2 Impacted cerumen, bilateral H61.23 Sensorineural hearing loss of combined sites, bilateral 11/16/14 H90.3 Medical History Medical History Venous (peripheral) insufficiency Hearing loss ROCÍO (obstructive sleep apnea) Excessive cerumen in ear canal Kidney stones GERD (gastroesophageal reflux disease) Diabetes mellitus HTN (hypertension) Surgical History Surgical History Hx of gastric bypass S/P gastric bypass Tobacco Smoking/Tobacco Use Status: Former Tobacco Use Alcohol Alcohol Intake: never Substance Use Substance use: Never Substance use type: does not use Vital Signs and Lab Results Vital Signs Most Recent Vital Signs in EMR: Most Recent Vital Signs Temp Pulse Resp BP Pulse Ox 37.8 C H 107 H 16 106/60 94 08/13/23 11:07 08/13/23 11:07 08/13/23 11:07 08/13/23 11:07 08/13/23 11:07 Lab Results 08/13/23 06:28 05/23/24 06:28 Blood Type / Crossmatch: 2 No Data to Display Complete Blood Count: 2 White Blood Count 5.01 10^3/uL (4.4-10.8) 08/13/23 06:28 Red Blood Count 3.86 10^6/uL (4.36-5.78) L 08/13/23 06:28 Hemoglobin 11.8 g/dL (13.5-17.5) L 08/13/23 06:28 Hematocrit 35.7 % (40.0-50.0) L 08/13/23 06:28 Platelet Count 233 10^3/uL (130-400) 08/13/23 06:28 Complete Metabolic Panel: 2 Sodium 139 mmol/L (136-145) 08/13/23 06:28 Potassium 4.1 mmol/L (3.5-5.1) 08/13/23 06:28 Chloride 102 mmol/L (98-107) 08/13/23 06:28 Carbon Dioxide 29.1 mmol/L (21.0-32.0) 08/13/23 06:28 BUN 32 mg/dL (7-18) H 08/13/23 06:28 Creatinine 1.4 mg/dL (0.70-1.30) H 08/13/23 06:28 Est GFR (CKD-EPI 2020) 51.45 (mL/min/1.73m2) 08/13/23 06:28 Magnesium 1.8 mg/dL (1.8-2.4) 08/12/23 00:55 Calcium 8.5 mg/dL (8.5-10.1) 08/13/23 06:28 Albumin 2.5 g/dL (3.4-5.0) L 08/13/23 06:28 Glucose 131 mg/dL (74-106) H 08/13/23 06:28 Liver Function Panel: 2 Alanine Aminotransferase (ALT/SGPT) 275 U/L (16-63) H 08/13/23 06:28 Aspartate Amino Transf (AST/SGOT) 204 U/L (15-37) H 08/13/23 06 :28 Coagulation Panel: 2 INR International Normalized Ratio 1.0 (0.9-1.1) 08/12/23 00:5 5 Prothrombin Time 10.5 sec (9.1-11.1) 08/12/23 00:55 Activated Partial Thromboplast Time 27.3 sec (23.6-32.8) 00:55 Cardiac Panel: 2 Troponin I < 50 ng/L (< or =60) 08/12/23 Arterial Blood Gas: 2 No Data to Display Venous Blood Gas: 2 No Data to Display Pancreas Panel: 2 Amylase Level 24 U/L (25-115) L 08/13/23 06:28 Lipase 12 U/L (16-77) L 08/13/23 06:28 Thyroid Panel: 2 No Data to Display Infectious Disease: 2 No Data to Display Blood Cultures: 2 No Data to Display Toxicology Panel: 2 No Data to Display Imaging and Studies Imaging and Studies Study information below may be from another EMR and interpreted by another provider. Please see original notes in EMR for more complete details. EKG Summary: 08/12/23: Conclusion Sinus tachycardia...rate> 99 Prolonged OR interval...OR >210, V-rate 121-300 Left atrial enlargement...P, P'>60mS, <-0.15mV V1 Right bundle branch block...QRSd>120, terminal axis(90,270) Inferior infarct, old...Q >35mS, II III aVF no ST segment or T wave abnormalitites to suggest occlusive NV Anesthesia Assessment and Plan Anesthesia History Personal History: No History of Anesthesia Complications Family History: No Family History of Anesthesia Complications Exercise Tolerance Exercise Tolerance: Metabolic Equivalents>4 Pertinent Negatives Pertinent Negatives: No Symptoms of GERD Cardiac & Pulmonary Exam Cardiac Exam: Normal S1/S2 Heart Sounds Pulmonary Exam: Clear Bilateral Breath Sounds Implantable Cardiac Device Does patient have a Pacemaker or an ICD?: No Airway Exam Known Difficult Airway: No Mallampati Class: 4 Mouth Opening: Narrow (< 3cm) Thyromental Distance: Greater than 3 cm Neck Range of Motion: Full ROM Neck Circumference: Thick Teeth Condition: Normal Dentition ASA Classification ASA Score: ASA 3 Emergency Case?: No NPO Status NPO Status: NPO Clears >2 hours, Solids >8 hours Anesthesia Plan Resuscitation Status: Full Code Anesthesia Technique: General Anesthesia Airway Planned: Endotracheal Tube Monitors Used: Standard Monitors and SedLine Preoperative Comments:: Prior gastric bypass, no OGT. Wears CPAP at night, no complications from prior anesthetics. Discussed potential for TAP vs. Erector Spinae block if surgery goes 'open' for pain control. Consented for arterial line and central line. Patient's daughter and present at bedside and all questions answered to the best of my ability.
[2023-08-13] MEDS: Bupivacaine 0.25% Pres-Free 30 ML VIAL (14:34)
--- NOTE | 2023-08-13 14:54 | W.ANESVAS ---
Midline Placement Date Performed: 08/13/23 Procedure Time: 14:45 Requesting Provider: Leslie Hughes Procedure Location: Operating Room Sedation Given (Indicate Dose Given): No Sedation given Patient Mental Status: Performed under general anesthesia Sterility: Hand Hygiene, Surgical Cap, Surgical Mask, Sterile Gloves, Chlorhexidine and Other (performed urgently due to loss of IV access, not sterile. ) Laterality: Right Insertion Site: Basilic Midline Device: PowerGlide Pro 18G Catheter Length: 10 cm Midline Procedure Procedure: Vessel accessed with catheter over needle Dressing: Tegaderm Applied and Statlock Applied Blood Return: Present Flushes: Easily Ultrasound: Not Used Number of Attempts (See previous attempts in note section): 1 Procedure Tolerated: No Complications Procedure Outcome: Successful Performed By: Yaw James
--- NOTE | 2023-08-13 15:33 | GB_PTH ---
PATIENT: Mickey Elena LOC: [facility]#:[id number] AGE/SX: 78/M ROOM: 214 RE08/12/[address]: Ricky Lovell : 1945 BED: A DIS: 08/14/2023 SPEC #: [id number] RECD: 08/13/23 16:14 STATUS: SAUL FRANKLIN #: [id number] CAIT: 08/13/23 15:[address]: Ricky Lovell DEPT: Surgical Specimen RECD BY: Mayte Springer ENTERED: 08/13/23 16:15 SP TYPE: GB OTHR DR: PAYAL LICEA, HVAC TECHNICIAN RESIDENTIAL El Stokes MD Tissues: 1 - GALLBLADDER Procedures: GROSS AND MICRO LEVEL 3 Comments: [id number]
--- NOTE | 2023-08-13 15:52 | ROE_ITS ---
Date of service: 08/13/23 Time of Service: 15:52 Operative Note Operative Note Refer to Anesthesia Record Procedure Description: Procedures performed: 1. Laparoscopic cholecystectomy Pre-op diagnosis: Acute cholecystitis Postoperative diagnosis: Same Surgeon: Donnell Lovell Anesthesia: Ellen Shotblast Equipment Operator: Rachel Indication for procedure: 70-year-old male with acute cholecystitis on imaging. MRCP negative for common duct stone or common duct dilation. FINDINGS: Distended and inflamed gallbladder. Normal biliary anatomy. Had planned to do a cholangiogram however cystic duct tissue tenuous and cholangiography felt to be an unnecessary risk. Drain left in gallbladder fossa because of the cystic duct stump condition. Specimens: 1. Gallbladder Complications: None Blood loss: 10 cc Urine output: Not measured Implants/drains: 15 [place] GAVIN drain in gallbladder fossa in case of cystic duct stump necrosis Procedure in detail: Patient gave written consent and was in agreement with the indications, the lik donte benefits as well as the potential risks of surgery. He was taken back to the operating room where anesthesia was administered which was tolerated well. He was positioned supine on the operating room table and we then prepped and draped in sterile fashion. We confirmed DVT prophylaxis as well as antibiotics had been administered. When we were all in agreement with our timeout we started the procedure. In the right upper quadrant I used a Veress needle to insufflate the abdomen which was tolerated well. Local anesthetic was injected prior. This was done easily and without any difficulty and show I used an Optiview 5 mm port to enter, well?away from the midline laparotomy incision. I gained access into the peritoneal cavity without any difficulty. I placed 3 more ports under direct visualization with a 12 mm port in the epigastrium. There were many adhesions along the midline and in the left upper quadrant from prior gastric bypass surgery however I was able to stay completely clear from this region. I turned my attention to the right upper quadrant where an obviously distended, inflamed and almost necrotic?appearing gallbladder was encountered. I burned a hole with electrocautery and the fundus and suctioned out/decompressed the gallbladder with the laparoscopic suction. I was then able to put my grasper on the fundus easily occluding the whole and retracted the gallbladder towards the left shoulder cephalad. This nicely exposed the biliary plate and the relevant anatomy. It was clearly inflamed with pericholecystic fluid present throughout the cystic plate and around the gallbladder. A combination of blunt and electrocautery dissection was performed isolating the cystic duct and the cystic artery. The entire cystic plate was cleared off confirming only 2 structures seen going into the gallbladder. Because of the patient's high bilirubin, despite a negative preop the MRCP, I decided to perform a cholangiogram to clear the common duct radiographically and definitively. The patient has a history of gastric bypass so any need for ERCP would have to be done with laparoscopic assistance to gain access to the remnant stomach. For these reasons I felt the cholangiogram was necessary in the setting of a high bilirubin. The anatomy was not confusing. Unfortunately while I was placing the Gan clamp across the infundibulum, the cystic duct actually tore from the infundibulum leaving only a 1 cm stump. Indeed the tissue was all acutely inflamed and tenuous and so I decided against further efforts at a cholangiogram ordering that I might damage the cystic duct and create a bile leak situation or worse, if the inflammation goes down to the common duct perhaps I would injure that. As such, I grasped the cystic duct stump and placed 3 clips on it. I then clipped the artery and divided it. I then removed the rest of the gallbladder off the liver bed using electrocautery. It was placed in an Endo Catch bag and removed from the abdo elyse cavity. The specimen was passed off the back table and placed in formalin. I then checked the gallbladder fossa for any bile leaking or any bleeding. Hemostasis was excellent and there was no evidence of any bile leaking from the bed. Because the cystic duct had ripped into pieces quite easily, I was worried that the quality of the cystic duct tissue might be compromised and I felt like there is high risk for a delayed bile leak if cystic duct necrosis causes the clips to fall off. For this reason I left a GAVIN drain in the gallbladder fossa. The 12 mm port site was then closed with 0 Vicryl in the fascia using a Rusty- Sam. I rechecked for hemostasis 1 last time and it remained excellent. We released pneumoperitoneum. I removed the 5 mm trocars. The skin was closed with yvette. Patient tolerated the procedure well. The sponge, instruments and sharps counts were correct x3 at the end of the procedure. He was extubated and taken to the PACU in hemodynamically stable condition.
[2023-08-13] MEDS: fentaNYL 100 MCG/2 ML VIAL IVP ×2 (16:32→17:08)
--- NOTE | 2023-08-13 19:10 | W.ANESPOSTOP ---
Postoperative Evaluation Date, Time and Location Date Performed: 08/13/23 Time Performed: 18:40 Patient Location: Med/Surg Vital Signs Most Recent Imported Vital Signs: Most Recent Vital Signs Temp Pulse Resp BP Pulse Ox 36.9 C 98 H 15 120/90 94 08/13/23 17:40 08/13/23 17:54 08/13/23 17:54 08/13/23 17:54 08/13/23 17:54 Pain Score Most Recent Pain Score: Most Recent Pain Score Pain Level [Mid Abdomen] 0 08/13/23 03:12 Pain Level 8 08/13/23 17:40 Assessment Mental Status: Awake (Alert & Oriented to Patient Baseline) Airway and Respiratory Function: Patent airway with normal (patient baseline) respiratory exam Cardiovascular Function: Hemodynamically Stable Hydration Status: Adequately Hydrated Nausea & Vomiting: No Nausea or Vomiting Pain: Pain is tolerable per patient Peripheral Nerve Block: Patient did not receive a nerve block
[2023-08-13] MEDS: Ondansetron 4 MG/2 ML VIAL IVP (19:20)
[2023-08-14] MEDS: MORPHine 4 MG/ML SYR IVP (02:22)
[2023-08-14] MEDS: Lactated Ringers 1,000 ML 125 ML IV (02:22)
[2023-08-14 03:40] VITALS: BP 112/77; PULSE 75; RESP 18; TEMP 36.6; O2SAT 96
[2023-08-14] MEDS: ACETAMINOPHEN 1,000 MG/100 ML BTL 400 MG IVPB (04:26)
[2023-08-14] MEDS: ERTAPENEM 1 GM in Normal Saline 50 ML IVPB (06:36)
[2023-08-14 07:00] LABS: ALT 162 U/L (16-63); AST 81 U/L (15-37); Alkaline Phosphatase 328 U/L (46-116); Anion Gap 5.7 mmol/L (3-11); BUN 27 mg/dL (7-18); Bilirubin, Direct 2.4 mg/dL (0.0-0.2); Bilirubin, Total 2.8 mg/dL (0.2-1.0); CO2 27.3 mmol/L (21.0-32.0); CREATININE 0.9 mg/dL (0.70-1.30); Calcium 8.4 mg/dL (8.5-10.1); Chloride 105 mmol/L (98-107); Estimated GFR 87.42 (mL/min/1.73m2); Glucose 132 mg/dL (74-106); Potassium 4.1 mmol/L (3.5-5.1); Sodium 138 mmol/L (136-145); Total Protein 5.4 g/dL (6.4-8.2)
[2023-08-14 07:42] VITALS: BP 122/75; PULSE 72; RESP 17; TEMP 36.7; O2SAT 92
--- NOTE | 2023-08-14 07:45 | W.PM.PROGNOT ---
Date of Service Date of service: 08/14/23 Time of Service: 07:45 Assessment and Plan Assessment and plan (1) Acute cholecystitis: Status: Acute Assessment and plan: POD#1 s/p Lap. Cholecystectomy with Dr. Lovell. Diet- Post op Diet Pain is well controlled Bilirubin has decreased to 2.8 this morning. Encouraged activity OOB and ambulation. DVT prophylaxis Abx Possible d/c home later today if tolerating regular low fat diet Will need follow up in the office on Thursday for drain removal Subjective Subjective Interval history since last seen: Patient reports he is feeling well this morning. Describing his abdomen as sore. He denies any nausea or vomiting. Exam Const General: cooperative, healthy appearing and comfortable Orientation: alert and oriented x3 Resp Effort & Inspection: normal respiratory effort, no audible wheezes and no cough GI Inspection: normal to inspection Palpation: soft, no guarding and nontender Other: Taj drain in place with serosanginous drainage. Drain tubing was stripped to prevent clogging. Objective Last Vital Signs Temp 36.7 C 08/14/23 07:42 Pulse 72 08/14/23 07:42 Resp 17 08/14/23 07:42 BP 122/75 08/14/23 07:42 Pulse Ox 92 08/14/23 07:42 Laboratory Results - last 24 hr 08/14/23 06:25 Sodium 138 Potassium 4.1 Chloride 105 Carbon Dioxide 27.3 Anion Gap 5.7 BUN 27 H Creatinine 0.9 Est GFR (CKD-EPI 2020) 87.42 Glucose 132 H Calcium 8.4 L Total Bilirubin 2.8 H Conjugated Bilirubin 2.4 H AST 81 H ALT 162 H Alkaline Phosphatase 328 H Total Protein 5.4 L Albumin 2.0 L Time Spent with Patient Time Spent with Patient: <25 minutes Time was spent: preparing to see the patient(eg.review tests), obtaining and/or reviewing separately otained hiistory and counseling the patient
--- NOTE | 2023-08-14 08:17 | DSE_ITS ---
Date of service: 08/14/23 Time of Service: 15:07 DS: Diagnosis Discharge Diagnosis (1) Acute cholecystitis: Status: Acute Asessment and Plan: Discharge home with drain care and outpatient follow-up Discharge Plan Disposition Patient Disposition: Home Condition: Good Discharge Details Reason For Visit: cholecystitis Admit Date/Time: 08/12/23 04:28 Admit Provider: El Stokes Attending Provider: Ricky Lovell Primary Care Provider: PAYAL LICEA Hospital Course Hospital Course: Serg is 78 years old. He comes to the emergency department with abdominal pain, and findings that were consistent with acute cholecystitis. However his LFTs were elevated, there was concern for choledocholithiasis. He underwent an MRCP which was negative. Subsequently, he underwent laparoscopic cholecystectomy. Tissue was quite friable, and a drain was left in place. By the next morning, his LFTs were already improving quite a bit. His pain was well-controlled and he was tolerating a diet. He was discharged home with a surgical drain, and plan for removal in the office next week. Home Meds and New Rx's Prescriptions: Continued ipratropium bromide 42 mcg (0.06 %) spray,non-aerosol 2 spray intranasal QHS PRN (Reason: allergy symptoms) Qty: 15 4RF Rx Instructions: administer into each nostril for congestion mupirocin 2 % ointment 1 applic topical BID Qty: 22 0RF Patient Comments: PRN Rx Instructions: use in nose as directed if needed calcium citrate 250 mg calcium tablet 500 mg PO BID desoximetasone 0.25 % ointment 1 applic topical BID fluoride (sodium) 1.1 % paste 1 applic dental DAILY calcium citrate 1,200 mg DAILY 0RF ketoconazole 2 % cream 1 applic topical BID Patient Comments: PRN Trulicity 1.5 mg/0.5 mL pen injector 1.5 mg subcut QWEEK potassium chloride [Klor-Con M20] 20 mEq tablet,ER particles/crystals 20 meq PO DAILY betamethasone dipropionate 0.05 % ointment 1 applic topical BID cyanocobalamin (vitamin B-12) [Vitamin B-12] 1,000 MCG tablet 1,000 mcg PO DAILY aspirin [Aspir-81] 81 MG tablet,delayed release (DR/EC) 81 mg PO DAILY furosemide [Lasix] 80 MG tablet 80 mg PO DAILY pantoprazole 40 MG tablet,delayed release (DR/EC) 40 mg PO DAILY magnesium 250 MG tablet 500 mg PO DAILY Vitamins and Minerals 1 EACH tablet 1 ea PO DAILY cholecalciferol (vitamin D3) 1,000 UNITS tablet 2,000 units PO DAILY Levemir FlexTouch U100 Insulin 100 unit/mL (3 mL) insulin pen 25 unit SUBCUT PC & HS Patient Comments: inject 25 units subcutaneously at bedtime lisinopril 5 mg tablet 5 mg PO DAILY metformin 500 mg tablet 1,000 mg PO BID triamcinolone acetonide 0.1 % cream 1 applic TOPICAL BID Patient Comments: APPLY A SMALL AMOUNT TO AFFECTED AREA TWO TIMES A DAY FOR 2 WEEKS CONTINUOUS Discharge Instructions Additional Instructions: Serg, it was nice to meet you in the hospital, and hope you make a quick recovery from your gallbladder removal. Expect to have a little bit of pain over the surgical sites over the next few days. I would like you to be careful with lifting, keeping the total weight less than 10 pounds until we see you back in the office. Otherwise you should be up and moving around, getting a little bit of exercise more more each day. Like we talked about, there is a drain left in the surgical site. It is connected to a suction device I would like you to empty this drain at least 1 time every day, or more often if you find that the bulb is filling up and no longer holding suction. To empty the drain, simply uncap it, flip it upside down, and squirt the contents into a measuring cup. Record that volume. Then flush that liquid down the toilet. To close the drain, simply squeeze it down tight, and reapply the cap. We will make arrangements to see you in the office next week. Please bring the recording of how much fluid is drained out for each day. I suspect the volume will decrease quite a bit in the days to come, we will probably be able to remove the drain during your office visit. With regards to the gallbladder removal, you may find that you have a little bit of diarrhea in the weeks to come. That is typically exacerbated with fatty foods. If you experience that, please cut the fat out of your diet and slowly reintroduce it 1 item at a time each week during your recovery. If you do not experience any diarrhea, then do not worry about this at all. If you have any questions at any time, please do not hesitate to call, otherwise we look forward to seeing you in the office. 1. Resume all of your medications. 2. Heating pads and ice packs over your incision sites as needed to help with pain. 3. You should alternate [id number] Tylenol and ibuprofen every 6 hours for the first 2 days. Then use as needed. I provided a prescription for stronger medication if you need it. 4. Leave bandages in place for 24 hours, then remove. 5. Shower with warm soapy water. Pat dry. Use Band-Aids over the incisions if needed to protect your clothing. You should remove any type of dressing over the surgical drain while you shower, and apply a large Band-Aid to the insertion site once you are done bathing. 6. No soaking or tub baths until I see you in the office. 7. No heavy lifting until I see you in the office. 8. Call the office (or go directly to the emergency room after hours) if you notice any of the following: Develop chills (warm to touch), or if you have a thermometer and your temperature is above 101 Difficulty breathing or difficultly swallowing Persistent vomiting Any bleeding ? exceeding one tablespoon 9. Call your physician if the site where your intravenous was started becomes red, swollen, painful, and warm to touch. Stand Alone Forms: Nursing Discharge Form Referrals: PAYAL LICEA NP [Primary Care Provider] - 08/27/23 9:30 am Ricky Lovell MD [ [facility] STAFF PHYSICIAN] - 08/19/23 1:30 pm (Appointment will be with Dr. Sow) Activity:: Activity as Tolerated Equipment/Supplies:: No Equipment Needed Diet:: Low Fat DS: Summary Time Spent with Patient providing and/or coordinating discharge services: Less than 30 minutes Status at Discharge Functional status at discharge: independent ambulation Overall status at discharge: patient is progressing back to baseline Mental Status: mental status grossly normal Speech and Movement: speech and movement normal Mood: congruent mood Affect: normal affect Quality:SDOH Health Related Social Needs: No Data to Display Exam GI Other: abdomen is soft and appropriately tender. Badages are clean Psych Mental Status: mental status grossly normal Speech and Movement: speech and movement normal Mood: congruent mood Affect: normal affect DS: Data Vitals/I&O Vitals and I&O: Vital Signs Temperature 98.1 F 08/14/23 07:42 Temperature Source Temporal Artery Scan 08/14/23 07:42 Pulse 72 08/14/23 07:42 Pulse Rhythm Regular 08/13/23 20:40 Pulse 91 H 08/12/23 02:31 Respiratory Rate 17 08/14/23 07:42 Respiratory Effort Normal, Non-Labored 08/13/23 20:40 Respiratory Depth Normal 08/13/23 20:40 Respiratory Pattern Normal 08/13/23 20:40 Blood Pressure 122/75 08/14/23 07:42 Blood Pressure Mean 94 08/12/23 02:31 Blood Pressure Position Sitting 08/12/23 01:07 Pulse Oximetry 92 08/14/23 07:42 Respiratory End-tidal CO2 30 08/13/23 17:15 Oxygen Delivery Method Room Air 08/14/23 07:42 Oxygen Flow Rate 0 08/14/23 07:42 Pain Level 0 08/14/23 07:42 Comment Decreased O2 flow to 2L at this time 08/13/23 20:42 Intake & Output 08/13/23 08/13/23 08/14/23 11:59 23:59 11:59 Intake Total 3270 / 5470 2200 / 5470 100 / 100 Output Total 700 / 760 60 / 760 495 / 495 Balance 2570 / 4710 2140 / 4710 -395 / -395 Weight 227 lb 4.745 oz Intake: IV 3270 / 5470 2200 / 5470 100 / 100 Output: Drainage 60 / 60 70 / 70 Right Mid Anterior Lateral 60 / 60 70 / 70 Abdomen Urine 700 / 700 425 / 425 Stool 0 / 0 Other: Urine Color Straw Yellow Urine Appearance Clear Clear Clear Urine Odor None Comment used the bathroom with nurse per patient Stool Size Small Stool Characteristics Formed Emesis Description None Voiding Methods Bedside Commode Toilet Data Completed and Pending Labs on day of discharge: Labs from last 24 hours 08/14/23 06:25 Sodium 138 Potassium 4.1 Chloride 105 Carbon Dioxide 27.3 Anion Gap 5.7 BUN 27 H Creatinine 0.9 Est GFR (CKD-EPI 2020) 87.42 Glucose 132 H Calcium 8.4 L Total Bilirubin 2.8 H Conjugated Bilirubin 2.4 H AST 81 H ALT 162 H Alkaline Phosphatase 328 H Total Protein 5.4 L Albumin 2.0 L PFSH All Active Problems (Updated 08/14/23 @ 12:54 by GAGE Petty) Abdominal pain (Acute) Acute cholecystitis (Acute) Localized edema (Acute) Adverse reaction to viral vaccines (Acute) Type 2 diabetes mellitus without complication (Acute) Acquired hammertoe of left foot (Acute) Left hip pain (Acute) Fecal urgency (Acute) Hammertoe of left foot (Acute) Diabetes mellitus type 2 in nonobese (Acute) Candidal intertrigo (Acute) Sleep apnea (Acute) Sensorineural hearing loss (SNHL) of both ears (Acute) Cough (Acute) Edema (Acute) Onychomycosis (Acute) Corns and callosities (Acute) Nail dystrophy (Acute) Nasal obstruction (Acute) Nasal vestibulitis (Acute) Conductive hearing loss, external ear (Acute) Impacted cerumen, bilateral (Acute) Sensorineural hearing loss of combined sites, bilateral (Acute 11/16/14) Medical History Venous (peripheral) insufficiency Hearing loss ROCÍO (obstructive sleep apnea) Excessive cerumen in ear canal Kidney stones GERD (gastroesophageal reflux disease) Diabetes mellitus HTN (hypertension) Surgical History Hx of gastric bypass S/P gastric bypass Family History Mother Hypertension Social History Smoking/Tobacco Use Status: Former Tobacco Use Tobacco: How many years used: 3 Smoking risk assessment performed?: Yes Alcohol Intake: never Drug use: Never Substance use type: does not use Housing: house current occupation: retired Do you feel safe at home: Yes Do you feel safe in your relationship?: Yes Time Spent with Patient Time Spent with Patient: <45 minutes Time was spent: preparing to see the patient(eg.review tests), indepentently interpreting results, counseling the patient and care coordination
[2023-08-14] MEDS: Heparin 5,000 UNITS/ML VIAL 5000 UNITS SC (09:25)
--- NOTE | 2023-08-14 09:38 | CMDISCH_ITS ---
Date of service: 08/14/23 Time of Service: 09:38 LACE Index Scoring Tool Questions: Length of Stay (in days): 2 Was the patient admitted via the E.D.?: Yes Comorbidities: Diabetes w/o Complication E.D. Visits: 1 Answers: Total Score: 7 Risk of Readmission: Low Risk Care Management Discharge Plan Reason for Hospitalization: acute cholecystitis Discharge Plan: Serg will be discharged home with no new services. He will follow up with his surgeon and plan of care and transport with family. Patient/Family Education Needs: Review discharge instructions, diet, activity, limitations, follow up plan and discuss Ask Me Three [facility] Health Related Social Needs: No Data to Display Referrals and interventions: none needed
[2023-08-14] MEDS: Normal Saline Flush 10 ML SYR IVP (10:37)
[2023-08-14] MEDS: Acetaminophen 500 MG TAB 1000 MG PO (10:37)
[2023-08-14 10:58] VITALS: BP 104/70; PULSE 93; RESP 17; TEMP 36.9; O2SAT 94
[2023-08-14 11:47] LABS: Abs Immature Grans 0.08 10^3/uL (0.0-0.06); Absolute Basophil Count 0.03 10^3/uL (0.0-0.2); Absolute Eosinophil Count 0.03 10^3/uL (0.0-0.7); Absolute Lymphocyte Count 0.51 10^3/uL (1.2-3.4); Absolute Monocyte Count 0.29 10^3/uL (0.1-0.8); Basophils % 0.3 %; Eosinophils % 0.3 %; HCT 33.4 % (40.0-50.0); Immature Grans % 0.8 %; Lymphocytes % 5.4 %; MCH 30.1 pg (27.0-33.0); MCHC 32.9 % (32.0-36.0); MCV 91 fL (80-95); MPV 9.6 fL (8.0-11.0); Monocytes % 3.1 %; Neutrophils % 90.1 %; Platelet Count 185 10^3/uL (130-400); RBC 3.66 10^6/uL (4.36-5.78); RDW 14.6 % (11.8-14.1); RDW-SD 49.1 fL; WBC 9.44 10^3/uL (4.4-10.8)
--- NOTE | 2023-08-14 12:52 | DSE_ITS ---
Date of service: 08/14/23 Time of Service: 12:53 DS: Diagnosis Discharge Diagnosis (1) Acute cholecystitis: Discharge Plan Disposition Patient Disposition: Home Condition: Good Discharge Details Reason For Visit: cholecystitis Admit Date/Time: 08/12/23 04:28 Admit Provider: El Stokes Attending Provider: Ricky Lovell Primary Care Provider: PAYAL LICEA Hospital Course Hospital Course: Serg is 78 years old. He comes to the emergency department with abdominal pain, and findings that were consistent with acute cholecystitis. However his LFTs were elevated, there was concern for choledocholithiasis. He underwent an MRCP which was negative. Subsequently, he underwent laparoscopic cholecystectomy. Tissue was quite friable, and a drain was left in place. By the next morning, his LFTs were already improving quite a bit. His pain was well-controlled and he was tolerating a diet. He was discharged home with a surgical drain, and plan for removal in the office next week. Home Meds and New Rx's Prescriptions: Continued ipratropium bromide 42 mcg (0.06 %) spray,non-aerosol 2 spray intranasal QHS PRN (Reason: allergy symptoms) Qty: 15 4RF Rx Instructions: administer into each nostril for congestion mupirocin 2 % ointment 1 applic topical BID Qty: 22 0RF Patient Comments: PRN Rx Instructions: use in nose as directed if needed calcium citrate 250 mg calcium tablet 500 mg PO BID desoximetasone 0.25 % ointment 1 applic topical BID fluoride (sodium) 1.1 % paste 1 applic dental DAILY calcium citrate 1,200 mg DAILY 0RF ketoconazole 2 % cream 1 applic topical BID Patient Comments: PRN Trulicity 1.5 mg/0.5 mL pen injector 1.5 mg subcut QWEEK potassium chloride [Klor-Con M20] 20 mEq tablet,ER particles/crystals 20 meq PO DAILY betamethasone dipropionate 0.05 % ointment 1 applic topical BID cyanocobalamin (vitamin B-12) [Vitamin B-12] 1,000 MCG tablet 1,000 mcg PO DAILY aspirin [Aspir-81] 81 MG tablet,delayed release (DR/EC) 81 mg PO DAILY furosemide [Lasix] 80 MG tablet 80 mg PO DAILY pantoprazole 40 MG tablet,delayed release (DR/EC) 40 mg PO DAILY magnesium 250 MG tablet 500 mg PO DAILY Vitamins and Minerals 1 EACH tablet 1 ea PO DAILY cholecalciferol (vitamin D3) 1,000 UNITS tablet 2,000 units PO DAILY Levemir FlexTouch U100 Insulin 100 unit/mL (3 mL) insulin pen 25 unit SUBCUT PC & HS Patient Comments: inject 25 units subcutaneously at bedtime lisinopril 5 mg tablet 5 mg PO DAILY metformin 500 mg tablet 1,000 mg PO BID triamcinolone acetonide 0.1 % cream 1 applic TOPICAL BID Patient Comments: APPLY A SMALL AMOUNT TO AFFECTED AREA TWO TIMES A DAY FOR 2 WEEKS CONTINUOUS Discharge Instructions Additional Instructions: Serg, it was nice to meet you in the hospital, and hope you make a quick recovery from your gallbladder removal. Expect to have a little bit of pain over the surgical sites over the next few days. I would like you to be careful with lifting, keeping the total weight less than 10 pounds until we see you back in the office. Otherwise you should be up and moving around, getting a little bit of exercise more more each day. Like we talked about, there is a drain left in the surgical site. It is connected to a suction device I would like you to empty this drain at least 1 time every day, or more often if you find that the bulb is filling up and no longer holding suction. To empty the drain, simply uncap it, flip it upside down, and squirt the contents into a measuring cup. Record that volume. Then flush that liquid down the toilet. To close the drain, simply squeeze it down tight, and reapply the cap. We will make arrangements to see you in the office next week. Please bring the recording of how much fluid is drained out for each day. I suspect the volume will decrease quite a bit in the days to come, we will probably be able to remove the drain during your office visit. With regards to the gallbladder removal, you may find that you have a little bit of diarrhea in the weeks to come. That is typically exacerbated with fatty foods. If you experience that, please cut the fat out of your diet and slowly reintroduce it 1 item at a time each week during your recovery. If you do not experience any diarrhea, then do not worry about this at all. If you have any questions at any time, please do not hesitate to call, otherwise we look forward to seeing you in the office. 1. Resume all of your medications. 2. Heating pads and ice packs over your incision sites as needed to help with pain. 3. You should alternate [id number] Tylenol and ibuprofen every 6 hours for the first 2 days. Then use as needed. I provided a prescription for stronger medication if you need it. 4. Leave bandages in place for 24 hours, then remove. 5. Shower with warm soapy water. Pat dry. Use Band-Aids over the incisions if needed to protect your clothing. You should remove any type of dressing over the surgical drain while you shower, and apply a large Band-Aid to the insertion site once you are done bathing. 6. No soaking or tub baths until I see you in the office. 7. No heavy lifting until I see you in the office. 8. Call the office (or go directly to the emergency room after hours) if you notice any of the following: Develop chills (warm to touch), or if you have a thermometer and your temperature is above 101 Difficulty breathing or difficultly swallowing Persistent vomiting Any bleeding ? exceeding one tablespoon 9. Call your physician if the site where your intravenous was started becomes red, swollen, painful, and warm to touch. Stand Alone Forms: Nursing Discharge Form Referrals: PAYAL LICEA NP [Primary Care Provider] - 08/27/23 9:30 am Ricky Lovell MD [ [facility] STAFF PHYSICIAN] - 08/19/23 1:30 pm (Appointment will be with Dr. Sow) Activity:: Activity as Tolerated Equipment/Supplies:: No Equipment Needed Diet:: Low Fat Discharge Orders Discharge Orders: Discharge Order (Routine); Ordered 08/14/23 Ordered By: Milad Sow Discharge Data Discharge Date/Time-TO BE ENTERED AT DEPARTURE: 08/14/23 15:46 DS: Summary Time Spent with Patient providing and/or coordinating discharge services: Less than 30 minutes Status at Discharge Functional status at discharge: independent ambulation Overall status at discharge: patient is back to baseline Mental Status: mental status grossly normal Speech and Movement: speech and movement normal Mood: congruent mood Affect: normal affect Quality:SDOH Health Related Social Needs: No Data to Display Exam Const General: cooperative, healthy appearing and comfortable Orientation: alert and oriented x3 Resp Effort & Inspection: normal respiratory effort, no audible wheezes and no cough GI Inspection: normal to inspection Palpation: soft, no guarding and nontender Other: Taj drain in place with serosanginous drainage. Patient education was provided [place] [facility] [place]. Psych Mental Status: mental status grossly normal Speech and Movement: speech and movement normal Mood: congruent mood Affect: normal affect DS: Data Vitals/I&O Vitals and I&O: Vital Signs Temperature 36.9 C 08/14/23 10:58 Temperature Source Temporal Artery Scan 08/14/23 10:58 Pulse 93 H 08/14/23 10:58 Pulse Rhythm Regular 08/14/23 07:30 Pulse 91 H 08/12/23 02:31 Respiratory Rate 17 08/14/23 10:58 Respiratory Effort Normal 08/14/23 07:30 Respiratory Depth Normal 08/14/23 07:30 Respiratory Pattern Normal 08/14/23 07:30 Blood Pressure 104/70 08/14/23 10:58 Blood Pressure Mean 94 08/12/23 02:31 Blood Pressure Position Sitting 08/12/23 01:07 Pulse Oximetry 94 08/14/23 10:58 Respiratory End-tidal CO2 30 08/13/23 17:15 Oxygen Delivery Method Room Air 08/14/23 10:58 Oxygen Flow Rate 0 08/14/23 10:58 Pain Level 0 08/14/23 10:58 Comment Decreased O2 flow to 2L at this time 08/13/23 20:42 Intake & Output 08/13/23 08/14/23 08/14/23 18:59 06:59 18:59 Intake Total 4220 / 4420 200 / 4420 50 / 50 Output Total 300 / 785 485 / 785 70 / 70 Balance 3920 / 3635 -285 / 3635 -20 / -20 Weight 103.1 kg Intake: IV 4220 / 4420 200 / 4420 50 / 50 Output: Drainage 60 / 60 70 / 70 Right Mid Anterior Lateral 60 / 60 70 / 70 Abdomen Urine 300 / 725 425 / 725 Other: Urine Color Straw Light Inés Yellow Urine Appearance Clear Clear Clear Urine Odor None Comment used the bathroom with nurse per patient Stool Size Small Stool Characteristics Formed Emesis Description None Voiding Methods Bedside Commode Bedside Commode Toilet Data Completed and Pending Labs on day of discharge: Labs from last 24 hours 08/14/23 08/14/23 11:35 06:25 WBC 9.44 RBC 3.66 L Hgb 11.0 L Hct 33.4 L MCV 91 MCH 30.1 MCHC 32.9 RDW 14.6 H Plt Count 185 MPV 9.6 Immature Gran % 0.8 Neutrophils % 90.1 Lymphocytes % 5.4 Monocytes % 3.1 Eosinophils % 0.3 Basophils % 0.3 Nucleated RBC % 0.0 Absolute Neutrophils 8.50 H Absolute Lymphocytes 0.51 L Absolute Monocytes 0.29 Absolute Eosinophils 0.03 Absolute Basophils 0.03 Sodium 138 Potassium 4.1 Chloride 105 Carbon Dioxide 27.3 Anion Gap 5.7 BUN 27 H Creatinine 0.9 Est GFR (CKD-EPI 2020) 87.42 Glucose 132 H Calcium 8.4 L Total Bilirubin 2.8 H Conjugated Bilirubin 2.4 H AST 81 H ALT 162 H Alkaline Phosphatase 328 H Total Protein 5.4 L Albumin 2.0 L PFSH All Active Problems (Updated 08/15/23 @ 00:01 by SCOTTIE JHA) Localized edema (Acute) Adverse reaction to viral vaccines (Acute) Type 2 diabetes mellitus without complication (Acute) Acquired hammertoe of left foot (Acute) Left hip pain (Acute) Fecal urgency (Acute) Hammertoe of left foot (Acute) Diabetes mellitus type 2 in nonobese (Acute) Candidal intertrigo (Acute) Sleep apnea (Acute) Sensorineural hearing loss (SNHL) of both ears (Acute) Cough (Acute) Edema (Acute) Onychomycosis (Acute) Corns and callosities (Acute) Nail dystrophy (Acute) Nasal obstruction (Acute) Nasal vestibulitis (Acute) Conductive hearing loss, external ear (Acute) Impacted cerumen, bilateral (Acute) Sensorineural hearing loss of combined sites, bilateral (Acute 11/16/14) Medical History Venous (peripheral) insufficiency Hearing loss ROCÍO (obstructive sleep apnea) Excessive cerumen in ear canal Kidney stones GERD (gastroesophageal reflux disease) Diabetes mellitus HTN (hypertension) Surgical History Hx of gastric bypass S/P gastric bypass Family History Mother Hypertension Social History Smoking/Tobacco Use Status: Former Tobacco Use Tobacco: How many years used: 3 Smoking risk assessment performed?: Yes Alcohol Intake: never Drug use: Never Substance use type: does not use Housing: house current occupation: retired Do you feel safe at home: Yes Do you feel safe in your relationship?: Yes Time Spent with Patient Time Spent with Patient: <45 minutes Time was spent: preparing to see the patient(eg.review tests), obtaining and/or reviewing separately otained hiistory and counseling the patient
[2023-08-14 14:55] VITALS: BP 109/66; PULSE 73; RESP 16; TEMP 36.7; O2SAT 94
== END 2023-08-14 15:46 | disposition home or self-care (01) | DRG 419 ==
LOC: ER 05:03 → MS 11:01
PROVIDERS: Admitting Provider Family Medicine; Emergency Provider Student in an Organized Health Care Education/Training Program; PCP Nurse Practitioner Family; Visit Provider Student in an Organized Health Care Education/Training Program
PROC: 0FT44ZZ Resection of Gallbladder, Percutaneous Endoscopic Approach (ICD-10-PCS; CPT 47563; principal; 2023-08-13 14:15)
DX: K80.12 Calculus of gallbladder with acute and chronic cholecystitis without obstruction (principal); Z79.82 Long term (current) use of aspirin; Z79.4 Long term (current) use of insulin; E11.9 Type 2 diabetes mellitus without complications; H90.3 Sensorineural hearing loss, bilateral; M20.42 Other hammer toe(s) (acquired), left foot; G47.33 Obstructive sleep apnea (adult) (pediatric); Z98.84 Bariatric surgery status; Z87.891 Personal history of nicotine dependence; I10 Essential (primary) hypertension; K21.9 Gastro-esophageal reflux disease without esophagitis; I87.2 Venous insufficiency (chronic) (peripheral); B35.1 Tinea unguium
CPT/HCPCS: 47562; 00123; 36415; 71275; 80048; 80053; 80076; 83690; 93005; 96374; 96375; 96376; 99222; 99232; 99285; 74181; 82150; 83735; 84484; 85025; 85610; 85730; 88304; 93010; 94760; J0131; J0665; J1100; J1335; J1644; J2001; J2270; J2371; J2405; J2704; J3010; J3490; Q9967

== ENCOUNTER → 2023-08-19 13:26 | Outpatient (BNVA) | payer MEDICARE, SELFPAY | PROVIDERS: PCP Nurse Practitioner Family; Referring Provider Nurse Practitioner Family; Visit Provider Surgery | DX: Z48.815 Encounter for surgical aftercare following surgery on the digestive system (principal); K81.0 Acute cholecystitis; D49.0 Neoplasm of unspecified behavior of digestive system ==

== ENCOUNTER 2023-09-05 13:13 | Emergency (ER) | payer MEDICARE, SELFPAY ==
[2023-09-05 13:24] VITALS: BP 122/66; PULSE 102; RESP 18; TEMP 36.6; O2SAT 96
--- NOTE | 2023-09-05 13:45 | DI.CT_ITS ---
Exam(s) CT ABDOMEN PELVIS W EXAM: CT ABDOMEN PELVIS W CLINICAL HISTORY: Abdominal wall swelling TECHNIQUE: Imaging Protocol: Axial computed tomography images with coronal and sagittal reformatted images were created and reviewed. CONTRAST MATERIAL: Intravenous: Omnipaque 350 Contrast volume:100 mL Oral: No COMPARISON: CT CT ABDOMEN PELVIS W from 05/07/[address] THORAX CTA from 08/12/2023 FINDINGS: ABDOMEN: Lung Bases: There is a small hiatal hernia. Postsurgical changes are seen at the gastroesophageal ju nction. Liver: Normal density. No measurable mass. Portal, Superior Mesenteric, and Splenic Veins: Unremarkable. Gallbladder and Biliary Tract: Status post cholecystectomy. There is mild intra and extrahepatic john iary ductal dilatation which may be secondary to the post cholecystectomy state. This is unchanged c ompared to the CT scan from 08/12/2023. Pancreas: Normal density, no abnormal calcifications or inflammatory process. Spleen: Normal. Adrenals: No masses seen. Kidneys: Normal size, contour and axis. Stable 2 mm nonobstructing stone in the lower pole of the lef t kidney. There is a left renal cyst which appears stable. No follow-up is recommended. Abdominal Aorta: Abdominal portion non-dilated. Atherosclerotic calcification is present. Bowel: There is diverticulosis of the colon without evidence of acute diverticulitis. There is a mod erate amount of stool seen throughout the colon suggesting constipation. There is no evidence of bow el wall thickening or bowel obstruction. There is a small bowel anastomosis in the left abdomen. Ar ea of anastomosis is mildly distended but no evidence of obstruction. The proximal small bowel is of normal caliber as is the distal small bowel. The stomach is incompletely distended limiting evaluat ion. Appendix is unremarkable. Peritoneal Cavity: No ascites, collection or mesenteric inflammatory response. No free air. Lymph Nodes: Within normal limits. Bones: Within normal limits for the patient's age. Soft Tissues: Unremarkable. PELVIS: Bladder: Symmetric distention, no gross wall thickening. Reproductive Organs: Unremarkable as visualized. Lymph Nodes: Within normal limits. Bones: Within normal limits for the patient's age. IMPRESSION: 1. No definite acute abdominal or pelvic process. 2. Left nephrolithiasis. No obstructive uropathy. 3. No evidence of bowel obstruction at this time. No evidence of a bowel inflammatory/infectious pro cess at this time. 4. Colonic diverticulosis without evidence of acute diverticulitis. 5. Status post cholecystectomy. Stable biliary ductal dilatation. RADIATION DOSE DELIVERED: Total DLP DATA REPOSITORY: All CT scans at this facility are submitted to the National Radiology Data Registry (NRDR) Dose Index Registry (DIR) with the [employer] (A[employer]). RADIATION OPTIMIZATION: All CT scans at this facility use at least one of these dose optimization te chniques: automated exposure control; mA and/or kV adjustment per patient size (includes targeted exa ms where dose is matched to clinical indication); or iterative reconstruction.
--- NOTE | 2023-09-05 14:07 | ED.GENADUL_ITS ---
Discharge Plan Discharge Details Chief Complaint: Cellulitis Clinical Impression: Abscess of postoperative wound of abdominal wall Primary Care Provider: PAYAL LICEA ED Provider: Suleman Fang Home Meds and New Rx's Prescriptions: No Action ipratropium bromide 42 mcg (0.06 %) spray,non-aerosol 2 spray intranasal QHS PRN (Reason: allergy symptoms) Qty: 15 4RF Rx Instructions: administer into each nostril for congestion fluoride (sodium) 1.1 % paste 1 applic dental DAILY Trulicity 1.5 mg/0.5 mL pen injector 1.5 mg subcut QWEEK potassium chloride [Klor-Con M20] 20 mEq tablet,ER particles/crystals 20 meq PO DAILY betamethasone dipropionate 0.05 % ointment 1 applic topical BID cyanocobalamin (vitamin B-12) [Vitamin B-12] 1,000 MCG tablet 1,000 mcg PO DAILY aspirin [Aspir-81] 81 MG tablet,delayed release (DR/EC) 81 mg PO DAILY furosemide [Lasix] 80 MG tablet 80 mg PO DAILY pantoprazole 40 MG tablet,delayed release (DR/EC) 40 mg PO DAILY magnesium 250 MG tablet 500 mg PO DAILY Vitamins and Minerals 1 EACH tablet 1 ea PO DAILY cholecalciferol (vitamin D3) 1,000 UNITS tablet 2,000 units PO DAILY Levemir FlexTouch U100 Insulin 100 unit/mL (3 mL) insulin pen 25 unit SUBCUT PC & HS Patient Comments: inject 25 units subcutaneously at bedtime lisinopril 5 mg tablet 5 mg PO DAILY metformin 500 mg tablet 1,000 mg PO BID triamcinolone acetonide 0.1 % cream 1 applic TOPICAL BID Patient Comments: APPLY A SMALL AMOUNT TO AFFECTED AREA TWO TIMES A DAY FOR 2 WEEKS CONTINUOUS HPI General Date/Time Provider Initiated Documentation: 09/05/23 13:23 . HPI Narrative: MDM This is a chronically ill-appearing mildly tachycardic but normothermic and not hypotensive 78-year-old male 15 days status post drain removal from laparoscopic cholecystectomy with localized abdominal wall fluctuance erythema tenderness concerning for cutaneous versus deep space infection given recent drain for which patient will undergo CT scan. No pain on proportion to suggest necrotizing soft tissue infection. I considered sepsis however the patient is not acutely ill-appearing so did not draw blood cultures treat apparently with broad-spectrum antibiotics nor check a lactate. No vesicles to suggest zoster. Will initiate treatment for abscess with clindamycin. Anticipate touching base with general surgery. 2:20 PM This metabolic panel with no AVEL. No acute electrolyte abnormalities. No hyperglycemia. 3:20 PM CBC lacks leukocytosis but does show persistent mild normocytic anemia. New thrombocytosis. 3:55 PM I spoke with Dr. Lovell from general surgery. He will come to evaluate the patient and likely complete bedside incision and drainage. Will sign patient out to Dr. Kang 4:[address] scan with no communication of abdominal wall abscess with intra-abdominal area. I updated patient on plan of care. Will repeat heart rate to ensure the patient is not developing sepsis. Chronic conditions affecting the care of the patient: Elevated BMI History obtained from an outside historian: N/A External record review: N/A Medications: Clindamycin IV fluids Social determinants of health affecting disposition: N/A Management discussed with: General surgery Treatment/interventions considered: N/A Response to therapies provided: N/A HPI This is 78-year-old male who is 17 days status post drain removal from a laparoscopic cholecystectomy now with erythema swelling and pain in his right lower quadrant at the site of his recent drain. Drain was in place for 6 days. He has not had any fevers chills nausea nor vomiting. Denies any recent falls. No chest pain or shortness of breath. Denies dysuria and frequency. Has been taking medications as previously scheduled. No other complaints. He was seen earlier today in urgent care. His symptoms have been progressing over the past week. Exam General: Well-appearing in no acute distress speaking in complete sentences. Head: Normocephalic, atraumatic. Eye: Extraocular eye movements intact. No conjunctival injection. No scleral icterus. Ear, nose, mouth, throat: Grossly normal inspection. Normal voice, handling secretions normally. Neck: Trachea midline. Cardiovascular: Well-perfused distal extremities. Respiratory: Nonlabored respiration. Gastrointestinal: Right lower quadrant with approximately 5 x 5 cm area that is erythematous fluctuant and tender and as shown in the photo as follows: Musculoskeletal: No edema. Moving all 4 extremities spontaneously. Skin: Normal for age and race, grossly normal temperature and turgor. No acute rash. Neurologic: Alert and appropriate, no apparent acute deficits. Psychiatric: Mood and manner are appropriate. Grooming and personal hygiene are appropriate. Related Data Home Medications Medication Instructions Recorded Confirmed aspirin 81 mg tablet,delayed 81 mg PO DAILY 06/09/12 09/05/23 release (Aspir-) cholecalciferol (vitamin D3) 25 2,000 units PO DAILY 06/09/12 09/05/23 mcg (1,000 unit) tablet cyanocobalamin (vitamin B-12) 1,000 mcg PO DAILY 06/09/12 09/05/23 1,000 mcg tablet (Vitamin B-12) furosemide 80 mg tablet (Lasix) 80 mg PO DAILY 06/09/12 09/05/23 magnesium 250 mg tablet 500 mg PO DAILY 06/09/12 09/05/23 multivitamin,tx-minerals (Vitamins 1 ea PO DAILY 06/09/12 09/05/23 and Minerals tablet) pantoprazole 40 mg tablet,delayed 40 mg PO DAILY 06/09/12 09/05/23 release insulin detemir U-100 100 unit/mL 25 unit subcut PC & HS 05/07/21 09/05/23 (3 mL) subcutaneous pen (Levemir FlexTouch U-100 Insulin) lisinopril 5 mg tablet 5 mg PO DAILY 05/07/21 09/05/23 ipratropium bromide 42 mcg (0.06 2 spray intranasal QHS PRN allergy 12/05/21 09/05/23 %) nasal spray symptoms #15 mL triamcinolone acetonide 0.1 % 1 applic topical BID 04/07/22 09/05/23 topical cream metformin 500 mg tablet 1,000 mg PO BID 05/05/22 09/05/23 betamethasone dipropionate 0.05 % 1 applic topical BID 04/01/23 09/05/23 topical ointment dulaglutide 1.5 mg/0.5 mL 1.5 mg subcut QWEEK 04/01/23 09/05/23 subcutaneous pen injector (Trulicity) potassium chloride 20 mEq 20 meq PO DAILY 04/01/23 09/05/23 tablet,extended release(part/cryst) (Klor-Con M) fluoride (sodium) 1.1 % dental 1 applic dental DAILY 06/08/23 09/05/23 paste Previous Rx's Medication Instructions Recorded ipratropium bromide 42 mcg (0.06 2 spray intranasal QHS PRN allergy 12/05/21 %) nasal spray symptoms #15 mL Allergies Allergy/AdvReac Type Severity Reaction Status Date / Time tolnaftate Allergy Intermediate bower his Verified 09/05/23 13:55 skin off cephalexin [Cephalexin] Allergy Mild Skin Rash Verified 09/05/23 13:55 Penicillins Allergy Mild unknown Verified 09/05/23 13:55 sulfamethoxazole Allergy Unknown Hives Verified 09/05/23 13:55 [From Bactrim] trimethoprim [From Bactrim] Allergy Unknown Hives Verified 09/05/23 13:55 adhesive Allergy rash Verified 09/05/23 13:55 bacitracin Allergy rash Verified 09/05/23 13:55 latex Allergy rash Verified 09/05/23 13:55 neomycin [Neomycin] Allergy rash Verified 09/05/23 13:55 penicillin V Allergy Other (See Verified 09/05/23 13:55 Comment) General Stated Complaint: Cellulitis ZEUS: 3 Course Vital Signs Vital signs: Vital Signs Temperature 36.6 C 09/05/23 13:24 Pulse 102 H 09/05/23 13:24 Respiratory Rate 18 09/05/23 13:24 Blood Pressure 122/66 09/05/23 13:24 Pulse Oximetry 96 09/05/23 13:24 Temperature 36.6 C 09/05/23 13:24 Pulse 102 H 09/05/23 13:24 Respiratory Rate 18 09/05/23 13:24 Respiratory Effort Normal 09/05/23 13:50 Blood Pressure 122/66 09/05/23 13:24 Pulse Oximetry 96 09/05/23 13:24 Pain Level 3 09/05/23 13:24 Medical Decision Making Quality:SDOH Health Related Social Needs: 2 No Data to Display PFSH All Active Problems (Updated 09/05/23 @ 16:21 by Suleman Fang MD) Abscess of postoperative wound of abdominal wall (Acute) IPMN (intraductal papillary mucinous neoplasm) (Acute) Localized edema (Acute) Adverse reaction to viral vaccines (Acute) Type 2 diabetes mellitus without complication (Acute) Acquired hammertoe of left foot (Acute) Left hip pain (Acute) Fecal urgency (Acute) Hammertoe of left foot (Acute) Diabetes mellitus type 2 in nonobese (Acute) Candidal intertrigo (Acute) Sleep apnea (Acute) Sensorineural hearing loss (SNHL) of both ears (Acute) Cough (Acute) Edema (Acute) Onychomycosis (Acute) Corns and callosities (Acute) Nail dystrophy (Acute) Nasal obstruction (Acute) Nasal vestibulitis (Acute) Conductive hearing loss, external ear (Acute) Impacted cerumen, bilateral (Acute) Sensorineural hearing loss of combined sites, bilateral (Acute 11/16/14) Medical History Acute cholecystitis Venous (peripheral) insufficiency Hearing loss ROCÍO (obstructive sleep apnea) Excessive cerumen in ear canal Kidney stones GERD (gastroesophageal reflux disease) Diabetes mellitus HTN (hypertension) Surgical History Hx of gastric bypass S/P gastric bypass Family History Mother Hypertension Social History Smoking/Tobacco Use Status: Former Tobacco Use Tobacco: How many years used: 3 Smoking risk assessment performed?: Yes Alcohol Intake: never Drug use: Never Substance use type: does not use Housing: house current occupation: retired Do you feel safe at home: Yes Do you feel safe in your relationship?: Yes
[2023-09-05 14:10] LABS: Abs Immature Grans 0.03 10^3/uL (0.0-0.06); Absolute Basophil Count 0.06 10^3/uL (0.0-0.2); Absolute Eosinophil Count 0.34 10^3/uL (0.0-0.7); Absolute Monocyte Count 0.52 10^3/uL (0.1-0.8); Absolute Neutrophil Count 3.72 10^3/uL (1.2-6.7); Eosinophils % 5.5 %; HCT 34.8 % (40.0-50.0); HGB 11.2 g/dL (13.5-17.5); Immature Grans % 0.5 %; Lymphocytes % 24.3 %; MCH 29.7 pg (27.0-33.0); MCHC 32.2 % (32.0-36.0); MCV 92 fL (80-95); MPV 9.2 fL (8.0-11.0); Monocytes % 8.4 %; Neutrophils % 60.3 %; Platelet Count 474 10^3/uL (130-400); RBC 3.77 10^6/uL (4.36-5.78); RDW 15.4 % (11.8-14.1); WBC 6.17 10^3/uL (4.4-10.8)
[2023-09-05 14:19] LABS: Anion Gap 6.8 mmol/L (3-11); BUN 24 mg/dL (7-18); CO2 30.2 mmol/L (21.0-32.0); Calcium 9.2 mg/dL (8.5-10.1); Chloride 104 mmol/L (98-107); Estimated GFR 77.04 (mL/min/1.73m2); Glucose 99 mg/dL (74-106); Potassium 4.2 mmol/L (3.5-5.1); Sodium 141 mmol/L (136-145)
[2023-09-05] MEDS: CLINDAMYCIN 600 MG/50 ML BAG 100 MG IVPB (14:42)
[2023-09-05] MEDS: Normal Saline 500 ML IV (14:42)
[2023-09-05] MEDS: Omnipaque 350 MG/ML 100 ML BTL IJ (15:05)
[2023-09-05] MEDS: Normal Saline - Diluent 50 ML VIAL IJ (15:07)
--- NOTE | 2023-09-05 16:08 | DI.VRAD_ITS ---
PROCEDURE INFORMATION: Exam: CT Abdomen And Pelvis With Contrast Exam date and time: 09/05/2023 3:05 PM Age: 78 years old Clinical indication: Other: Abdominal wall swelling; Patient HX: Gallbladder surgery 08/13/23 TECHNIQUE: Imaging protocol: Computed tomography of the abdomen and pelvis with contrast. Radiation optimization: All CT scans at this facility use at least one of these dose optimization techniques: automated exposure control; mA and/or kV adjustment per patient size (includes targeted exams where dose is matched to clinical indication); or iterative reconstruction. Contrast material: OMNI 350; Contrast volume: 100 ml; Contrast route: INTRAVENOUS (IV); COMPARISON: MR ABDOMEN WO 08/12/2023 11:51 AM FINDINGS: Liver: Normal. No mass. Gallbladder and bile ducts: Recent cholecystectomy. There is a small amount intrahepatic biliary ductal dilatation centrally. Pancreas: Normal. No ductal dilation. Spleen: Normal. No splenomegaly. Adrenal glands: Normal. No mass. Kidneys and ureters: Normal. No hydronephrosis. Stomach and bowel: Previous gastric bypass. 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 This finding has increased in comparison to previous exams. Tiny rounded fat collection just anterior to the cecum representing a resolved area epiploic appendagitis. Appendix: No evidence of appendicitis. Intraperitoneal space: No free air. Vasculature: Unremarkable. No abdominal aortic aneurysm. Lymph nodes: Unremarkable. No enlarged lymph nodes. Urinary bladder: Unremarkable as visualized. Reproductive: Unremarkable as visualized. Bones/joints: Unremarkable. No acute fracture. Soft tissues: Multiple surgical clips along the left side of the abdominal wall. IMPRESSION: 1. Previous gastric bypass. 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 This finding has increased in comparison to previous exams. Question of dilated afferent loop. 2. There is a small amount intrahepatic biliary ductal dilatation centrally. Attention to this region should be directed on follow-up studies. Dictated and Authenticated by: Mario Schaefer MD. Ordering:SHANIA Shell MD
[2023-09-05 16:31] VITALS: BP 126/82; PULSE 84; RESP 16; O2SAT 99
--- NOTE | 2023-09-05 16:40 | W.SURGCON ---
Date of service: 09/05/23 Time of Service: 16:40 Assessment and Plan Assessment and plan (1) Wound infection after surgery: Status: Acute Assessment and plan: 78-year-old man postop 3 weeks from laparoscopic cholecystectomy who has developed a superficial wound infection at the surgical drain site. Clinically I am suspicious it is either strep or MRSA infection. I reviewed the CT scan that was done, and the induration is very superficial within the soft tissue. There is no obvious collection present. I don't see any communication between this and the peritoneal cavity. I performed a bedside I&D and essentially extended the existing skin defects. This created about a 1 cm incision down into the infection. As expected, there is no pus present but rather gelatinous?type of indurated and infected soft tissue. Cultures were taken. Quarter-inch packing was left in place. I gave the patient explicit details on twice daily hot compresses/hot showers to the site. I explained to him how to make sure the packing is placed, gently between the skin edges, once a day to ensure that it does not heal over and the infection can continue to drain itself. The cellulitis around this infectious process is minimal at this time but I think it warrants antibiotic therapy. The patient is diabetic and was hospitalized for a number of days and I am concerned that this would be a resistant bacteria. I think he needs more than Keflex and he should have oral antibiotics that will cover MRSA potentially. Overall plan: Hot compresses twice daily Packing change once daily (does not need to be packed into the wound but rather simply to prevent skin edges from closing, allowing it to drain adequately) Oral antibiotics 7 days Follow-up with us in the office outpatient Call us if anything is worsening History of Present Illness Narrative: 78-year-old man is known to me from prior cholecystectomy a few weeks ago. He had a drain left in place after his surgery and that was removed in the office shortly thereafter. He says he has had kind of a festering wound there since the drain was removed. He has been changing dressings at the site for a number of days and says 3 days ago he started having pus from the area. Earlier today, when he woke up, it was much more painful and very red and tender. No more pus was coming out for this reason he came to the emergency department. Other than the tender area, he has been doing great and reports eating well and no further symptoms like when he presented. He denies fevers. PFSH All Active Problems (Updated 09/05/23 @ 17:37 by Ricky Lovell MD) Wound infection after surgery (Acute) Abscess of postoperative wound of abdominal wall (Acute) IPMN (intraductal papillary mucinous neoplasm) (Acute) Localized edema (Acute) Adverse reaction to viral vaccines (Acute) Type 2 diabetes mellitus without complication (Acute) Acquired hammertoe of left foot (Acute) Left hip pain (Acute) Fecal urgency (Acute) Hammertoe of left foot (Acute) Diabetes mellitus type 2 in nonobese (Acute) Candidal intertrigo (Acute) Sleep apnea (Acute) Sensorineural hearing loss (SNHL) of both ears (Acute) Cough (Acute) Edema (Acute) Onychomycosis (Acute) Corns and callosities (Acute) Nail dystrophy (Acute) Nasal obstruction (Acute) Nasal vestibulitis (Acute) Conductive hearing loss, external ear (Acute) Impacted cerumen, bilateral (Acute) Sensorineural hearing loss of combined sites, bilateral (Acute 11/16/14) Medical History Acute cholecystitis Venous (peripheral) insufficiency Hearing loss ROCÍO (obstructive sleep apnea) Excessive cerumen in ear canal Kidney stones GERD (gastroesophageal reflux disease) Diabetes mellitus HTN (hypertension) Surgical History Hx of gastric bypass S/P gastric bypass Family History Mother Hypertension Social History Smoking/Tobacco Use Status: Former Tobacco Use Tobacco: How many years used: 3 Smoking risk assessment performed?: Yes Alcohol Intake: never Drug use: Never Substance use type: does not use Housing: house current occupation: retired Do you feel safe at home: Yes Do you feel safe in your relationship?: Yes Exam Narrative Exam Narrative: General: Nontoxic, comfortable and interactive Neuro: Alert and oriented x 3 Psych: Good mood and affect, good insight and understanding into his condition Abdominal wall: Soft, nondistended and nontender. There is a small area of induration about 2-3 cm that is palpable. It is not really fluctuant or mobile. There are 2 small skin defects consistent with the sites he says have been oozing pus. There is minimal erythema around this area extending about 1 cm in the periphery circumferentially. His other incision sites look perfect. Results Last Vital Signs Temp 97.8 F 09/05/23 13:24 Pulse 84 09/05/23 16:31 Resp 16 09/05/23 16:31 BP 126/82 09/05/23 16:31 Pulse Ox 99 09/05/23 16:31 Labs 09/05/23 13:45 09/05/23 13:45 Labs: Laboratory Results - last 24 hr 09/05/23 13:45 WBC 6.17 RBC 3.77 L Hgb 11.2 L Hct 34.8 L MCV 92 MCH 29.7 MCHC 32.2 RDW 15.4 H Plt Count 474 H MPV 9.2 Immature Gran % 0.5 Neutrophils % 60.3 Lymphocytes % 24.3 Monocytes % 8.4 Eosinophils % 5.5 Basophils % 1.0 Nucleated RBC % 0.0 Absolute Neutrophils 3.72 Absolute Lymphocytes 1.50 Absolute Monocytes 0.52 Absolute Eosinophils 0.34 Absolute Basophils 0.06 Sodium 141 Potassium 4.2 Chloride 104 Carbon Dioxide 30.2 Anion Gap 6.8 BUN 24 H Creatinine 1.0 Est GFR (CKD-EPI 2020) 77.04 Glucose 99 Calcium 9.2
--- NOTE | 2023-09-05 17:42 | ED.PROG_ITS ---
Date of service: 09/05/23 Time of Service: 17:42 Medical Decision Making Resting notably no acute distress, Dr. Quezada general surgery was able to express some purulent material at bedside, recommending home with oral antibiotics with MRSA coverage, patient allergic to Bactrim will start on clindamycin. Patient to follow-up with Dr. Lovell in clinic. Quality:[facility] Health Related Social Needs: No Data to Display Sign Out Sign Out Data: Sign Out Comment: Follow-up with general surgery due to arrival 5:30 PM concerning postoperative abdominal wall abscess likely requiring bedside I&D versus operative intervention. Patient received clindamycin and 500 cc of crystalloid. Last updated by Suleman Fang MD at 09/05/23 16:22 Discharge Plan Disposition Patient Disposition: Home Condition: Improving Discharge Details Clinical Impression: Abscess of postoperative wound of abdominal wall Primary Care Provider: PAYAL LICEA ED Provider: Berny Whalen Home Meds and New Rx's Prescriptions: New clindamycin HCl 300 mg capsule 300 mg PO TID 7 Days Qty: 21 0RF No Action ipratropium bromide 42 mcg (0.06 %) spray,non-aerosol 2 spray intranasal QHS PRN (Reason: allergy symptoms) Qty: 15 4RF Rx Instructions: administer into each nostril for congestion fluoride (sodium) 1.1 % paste 1 applic dental DAILY Trulicity 1.5 mg/0.5 mL pen injector 1.5 mg subcut QWEEK potassium chloride [Klor-Con M20] 20 mEq tablet,ER particles/crystals 20 meq PO DAILY betamethasone dipropionate 0.05 % ointment 1 applic topical BID cyanocobalamin (vitamin B-12) [Vitamin B-12] 1,000 MCG tablet 1,000 mcg PO DAILY aspirin [Aspir-81] 81 MG tablet,delayed release (DR/EC) 81 mg PO DAILY furosemide [Lasix] 80 MG tablet 80 mg PO DAILY pantoprazole 40 MG tablet,delayed release (DR/EC) 40 mg PO DAILY magnesium 250 MG tablet 500 mg PO DAILY Vitamins and Minerals 1 EACH tablet 1 ea PO DAILY cholecalciferol (vitamin D3) 1,000 UNITS tablet 2,000 units PO DAILY Levemir FlexTouch U100 Insulin 100 unit/mL (3 mL) insulin pen 25 unit SUBCUT PC & HS Patient Comments: inject 25 units subcutaneously at bedtime lisinopril 5 mg tablet 5 mg PO DAILY metformin 500 mg tablet 1,000 mg PO BID triamcinolone acetonide 0.1 % cream 1 applic TOPICAL BID Patient Comments: APPLY A SMALL AMOUNT TO AFFECTED AREA TWO TIMES A DAY FOR 2 WEEKS CONTINUOUS Discharge Instructions Instructions: Abscess Incision and Drainage ED Additional Instructions: Please take antibiotics as prescribed. Please return to the emerged part for any worsening symptoms
[2023-09-05] MEDS: Clindamycin 300 MG CAP PO (17:57)
== END 2023-09-05 17:59 | disposition home or self-care (01) ==
PROVIDERS: Emergency Medicine; Emergency Provider Emergency Medicine; PCP Nurse Practitioner Family
DX: R19.00 Intra-abdominal and pelvic swelling, mass and lump, unspecified site (principal); T81.49XA Infection following a procedure, other surgical site, initial encounter; E11.628 Type 2 diabetes mellitus with other skin complications
CPT/HCPCS: 00123; 10061; 36415; 80048; 87077; 96361; 96365; 99283; 99285; 74177; 85025; 87070; 87205; J0737; J3490

== ENCOUNTER → 2023-09-10 12:31 | Outpatient (BNVA) | payer MEDICARE, SELFPAY | PROVIDERS: PCP Nurse Practitioner Family; Referring Provider Nurse Practitioner Family; Visit Provider Student in an Organized Health Care Education/Training Program | DX: T81.49XD Infection following a procedure, other surgical site, subsequent encounter (principal) ==

== ENCOUNTER → 2023-10-13 09:13 | Outpatient (BNVA) | payer MEDICARE, SELFPAY | PROVIDERS: PCP Nurse Practitioner Family; Referring Provider Nurse Practitioner Family; Visit Provider Podiatrist | DX: E11.9 Type 2 diabetes mellitus without complications (principal); L60.3 Nail dystrophy; L84 Corns and callosities; B35.1 Tinea unguium; I87.2 Venous insufficiency (chronic) (peripheral); R60.9 Edema, unspecified; M79.672 Pain in left foot; M79.671 Pain in right foot; I73.89 Other specified peripheral vascular diseases | CPT/HCPCS: 11056; 11719 ==

== ENCOUNTER 2024-01-26 01:13 | Outpatient (CLI) | payer MEDICARE, SELFPAY ==
--- NOTE | 2024-01-26 | DI.MRI_ITS ---
Exam(s) MR ABDOMEN WO/W EXAM: MR ABDOMEN WO/W CLINICAL HISTORY: Pancreas cyst, K86.2; f/u uncinate cystic mass TECHNIQUE: Multiplanar multisequence MRI of the Abdomen was performed. CONTRAST MATERIAL: IV Contrast: 20 mL of [place] contrast administered. COMPARISON: MR MR ABDOMEN WO from 08/12/2023 FINDINGS: Liver: No suspicious hepatic masses are present. Pancreas: There is again seen a lobulated cystic lesion adjacent to the uncinate process measuring 3. 0 by 1.5 cm. (Series 3001, image 22). This has shown slight decrease in size compared to the prior examination. There is no enhancement following contrast administration. Gallbladder and Bile Ducts: The patient is now status post cholecystectomy. No significant biliary d uctal dilatation is present. Adrenals: Unremarkable. Kidneys: There is a small simple cyst in the left kidney. No follow-up is recommended. No evidence of hydronephrosis. No suspicious renal mass. Spleen: Unremarkable. Bowel: There is a small hiatal hernia. Note is made of colonic diverticulosis without evidence of ac tribal diverticulitis. No evidence of bowel obstruction or bowel wall thickening. Aorta: Unremarkable. Soft Tissues: Unremarkable. Bone: Multilevel degenerative changes are seen throughout the lumbar spine. There is central spinal canal stenosis seen at L4-5 and L5-S1. There is a left convex lumbar scoliosis. Lymph Nodes: Unremarkable. IMPRESSION: 1. Slight decrease in size of the lobulated cystic lesion adjacent to the uncinate process. Follow-u p examination in 6-12 months is recommended. 2. No acute abdominal process. 3. Status post cholecystectomy. No biliary ductal dilatation. DATA REPOSITORY:
[2024-01-26] MEDS: Normal Saline - Diluent 50 ML VIAL 25 ML IJ (10:20)
[2024-01-26] MEDS: Gadoterate meglumine 20 ML VIAL IVP (10:20)
== END 2024-01-26 01:33 ==
LOC: DI 01:13
PROVIDERS: PCP Nurse Practitioner Family; Visit Provider Internal Medicine Gastroenterology
DX: K86.2 Cyst of pancreas (principal)
CPT/HCPCS: 74183

== ENCOUNTER → 2024-01-27 11:00 | Outpatient (BNVA) | payer MEDICARE, SELFPAY | PROVIDERS: PCP Nurse Practitioner Family; Referring Provider Nurse Practitioner Family; Visit Provider Podiatrist | DX: L60.3 Nail dystrophy (principal); L84 Corns and callosities; B35.1 Tinea unguium; I87.2 Venous insufficiency (chronic) (peripheral); R60.0 Localized edema; E11.9 Type 2 diabetes mellitus without complications; I73.89 Other specified peripheral vascular diseases; R20.8 Other disturbances of skin sensation | CPT/HCPCS: 11056; 11721 ==

== ENCOUNTER → 2024-05-04 08:10 | Outpatient (BNVA) | payer MEDICARE, SELFPAY | PROVIDERS: PCP Nurse Practitioner Family; Referring Provider Nurse Practitioner Family; Visit Provider Podiatrist | DX: L60.3 Nail dystrophy (principal); L84 Corns and callosities; B35.1 Tinea unguium; I87.2 Venous insufficiency (chronic) (peripheral); R60.0 Localized edema; E11.42 Type 2 diabetes mellitus with diabetic polyneuropathy; I73.89 Other specified peripheral vascular diseases; R09.89 Other specified symptoms and signs involving the circulatory and respiratory systems; L65.9 Nonscarring hair loss, unspecified; L60.8 Other nail disorders; L60.2 Onychogryphosis; R23.8 Other skin changes | CPT/HCPCS: 11055; 11721 ==

== ENCOUNTER 2024-08-08 12:13 | Outpatient (REF) | payer MEDICARE, OTHER, SELFPAY ==
[2024-08-08 16:28] LABS: HCT 35.9 % (40.0-50.0); HGB 11.4 g/dL (13.5-17.5); MCH 28.9 pg (27.0-33.0); MCHC 31.8 % (32.0-36.0); MCV 91 fL (80-95); MPV 9.5 fL (8.0-11.0); Platelet Count 391 10^3/uL (130-400); RBC 3.94 10^6/uL (4.36-5.78); RDW 15.1 % (11.8-14.1); RDW-SD 50.7 fL; WBC 5.98 10^3/uL (4.4-10.8)
[2024-08-08 16:42] LABS: ALT 15 U/L (16-63); AST 14 U/L (15-37); Alkaline Phosphatase 109 U/L (46-116); Anion Gap 5.2 mmol/L (3-11); BUN 28 mg/dL (7-18); Bilirubin, Total 0.4 mg/dL (0.2-1.0); CO2 30.8 mmol/L (21.0-32.0); CREATININE 1.1 mg/dL (0.70-1.30); Calcium 9.4 mg/dL (8.5-10.1); Chloride 105 mmol/L (98-107); Estimated GFR 68.29 (mL/min/1.73m2); Glucose 143 mg/dL (74-106); Potassium 4.5 mmol/L (3.5-5.1); Sodium 141 mmol/L (136-145); Total Protein 6.2 g/dL (6.4-8.2)
== END 2024-08-08 12:14 | disposition home or self-care (01) ==
LOC: NCHCN 12:13
PROVIDERS: PCP Nurse Practitioner Family; Visit Provider Nurse Practitioner Family
DX: I10 Essential (primary) hypertension (principal); Z98.84 Bariatric surgery status; E83.42 Hypomagnesemia
CPT/HCPCS: 80053; 85027; 83735

== ENCOUNTER → 2024-08-31 08:13 | Outpatient (BNVA) | payer MEDICARE, SELFPAY | PROVIDERS: PCP Nurse Practitioner Family; Referring Provider Nurse Practitioner Family; Visit Provider Podiatrist | DX: L60.3 Nail dystrophy (principal); B35.1 Tinea unguium; L84 Corns and callosities; I87.2 Venous insufficiency (chronic) (peripheral); R60.0 Localized edema; E11.42 Type 2 diabetes mellitus with diabetic polyneuropathy; L85.8 Other specified epidermal thickening; R09.89 Other specified symptoms and signs involving the circulatory and respiratory systems; L65.9 Nonscarring hair loss, unspecified; R23.8 Other skin changes; L60.2 Onychogryphosis; I83.93 Asymptomatic varicose veins of bilateral lower extremities; L60.8 Other nail disorders | CPT/HCPCS: 11056; 11721 ==

== ENCOUNTER 2024-09-08 18:06 | Outpatient (REF) | payer MEDICARE, SELFPAY ==
[2024-09-08 17:11] LABS: COMMENT (LAB VIEW ONLY) 155.79 mg/dL; Microalb ug/mg Crea 9.9 ug/mg Cr
== END 2024-09-08 18:07 | disposition home or self-care (01) ==
LOC: NCHCN 18:06
PROVIDERS: PCP Nurse Practitioner Family; Visit Provider Nurse Practitioner Family
DX: Z00.00 Encounter for general adult medical examination without abnormal findings (principal)
CPT/HCPCS: 82043; 82570

== ENCOUNTER → 2024-12-07 08:16 | Outpatient (BNVA) | payer MEDICARE, SELFPAY | PROVIDERS: PCP Nurse Practitioner Family; Referring Provider Nurse Practitioner Family; Visit Provider Podiatrist | DX: L60.3 Nail dystrophy (principal); B35.1 Tinea unguium; B35.3 Tinea pedis; L84 Corns and callosities; I87.2 Venous insufficiency (chronic) (peripheral); R60.0 Localized edema; E11.42 Type 2 diabetes mellitus with diabetic polyneuropathy; I73.89 Other specified peripheral vascular diseases; M79.674 Pain in right toe(s); M79.675 Pain in left toe(s); R09.89 Other specified symptoms and signs involving the circulatory and respiratory systems; L65.9 Nonscarring hair loss, unspecified; R23.4 Changes in skin texture; L60.8 Other nail disorders; I83.93 Asymptomatic varicose veins of bilateral lower extremities; R23.8 Other skin changes; L60.2 Onychogryphosis | CPT/HCPCS: 11056; G0127 ==

== ENCOUNTER 2025-03-22 16:40 | Outpatient (REF) | payer MEDICARE, OTHER, SELFPAY ==
[2025-03-22 20:23] LABS: HCT 37.4 % (40.0-50.0); HGB 11.7 g/dL (13.5-17.5); MCH 27.0 pg (27.0-33.0); MCHC 31.3 % (32.0-36.0); MCV 86 fL (80-95); MPV 9.5 fL (8.0-11.0); Platelet Count 302 10^3/uL (130-400); RBC 4.33 10^6/uL (4.36-5.78); RDW 14.6 % (11.8-14.1); RDW-SD 46.2 fL; WBC 5.31 10^3/uL (4.4-10.8)
[2025-03-22 20:41] LABS: ALT 17 U/L (10-49); AST 15 U/L (<34); Albumin 3.7 g/dL (3.2-5.0); Alkaline Phosphatase 101 U/L (46-116); Anion Gap 8.2 mmol/L (3-11); BUN 26 mg/dL (9-23); Bilirubin, Total 0.3 mg/dL (0.2-1.2); CO2 29.8 mmol/L (20.0-31.0); Calcium 9.2 mg/dL (8.3-10.6); Chloride 105 mmol/L (98-107); Glucose 91 mg/dL (74-106); Magnesium 2.0 mg/dL (1.6-2.6); Potassium 4.2 mmol/L (3.5-5.1); Sodium 143 mmol/L (136-145); TSH (W/Ref FT4) 2.49 uIU/mL (0.55-4.78); Total Protein 6.3 g/dL (5.7-8.2)
[2025-03-22 20:55] LABS: Hemoglobin A1C 6.1 % (<5.7)
== END 2025-03-22 16:41 | disposition home or self-care (01) ==
LOC: NCHCN 16:40
PROVIDERS: PCP Nurse Practitioner Family; Visit Provider Nurse Practitioner Family
DX: R63.5 Abnormal weight gain (principal); I10 Essential (primary) hypertension; I87.2 Venous insufficiency (chronic) (peripheral); E11.9 Type 2 diabetes mellitus without complications; Z79.4 Long term (current) use of insulin
CPT/HCPCS: 80053; 85027; 83036; 83735; 83880; 84443